=== PATIENT | female | born 1960 | race Caucasian/White ===

== ENCOUNTER → 2016-03-30 | Outpatient (CLI) | payer OTHER ==
[~2016-03-30] MED LIST: /LOR25TA PO; ACET50TA PO; CITA10SO PO; CITA20TA4 PO; COLA50CA3 PO; CYCL10TA PO; DOCU10ELUD FT; EXCETAB PO; HYDR-3716 FT; HYDR-3716 PO; LYRI75CA PO; MORP15TA2 PO; MORP15TA39 PO; PRAV40TA2 PO; VALI10TA PO; [UNRECOGNIZED DRUG - CODE] IV
--- NOTE | 2016-04-02 01:21 | ECWPNPC ---
PATIENT NAME: FARIDA MOHAN : 1960 GENDER: FEMALE VISIT DATE: 03/30/2016 DISCHARGE DATE: 03/30/16 1704 VISIT LOCKED DATE TIME: PHYSICIAN: SILVANA BATRES PHYSICIAN PAGER NO: [phone] RESOURCE: SILVANA BATRES REASON FOR APPOINTMENT 1. W/C BACK PAIN HISTORY OF PRESENT ILLNESS HISTORY OF PRESENT ILLNESS: PAIN THE PATIENT DESCRIBES THE PAIN... 55 YEAR OLD FEMALE PATIENT WITH HISTORY OF CHRONIC BACK PAIN. PATIENT DESCRIBES THE PAIN ACHING, BURNING, SHARP, SHOOTING, AND HAVING IT ALL THE TIME WITH A PAIN SCORE OF 6/10. 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 MRS. MOHAN REPORTS HAVING A BACK SURGERY IN 2013 BUT REPORTS NOT HAVING ANY RELIEF FROM THE SURGERY. CURRENTLY THE PATIENT IS USING HYDROCODONE TO AID IN PAIN RELIEF. PATIENT STATES SHE DOES NOT WANT TO MOVE FORWARD WITH ANY INTERVENTIONS AT THIS TIME. PATIENT DENIES UNEXPLAINABLE WEIGHT LOSS, FEVER, CHILLS, NEW CHANGES ON HER URINARY OR BOWEL CONTROL. FALL RISK SCREENING: SCREENING :NO FALLS IN THE PAST YEAR CURRENT MEDICATIONS TAKING ACETAMINOPHEN 500 MG CAPSULE 1 CAPSULE NEEDED ORALLY EVERY 6 HRS TAKING MULTI COMPLETE CAPSULE 1 TAB ORALLY DAILY TAKING MELOXICAM 7.5 MG TABLET 1 TABLET ORALLY BID TAKING CITALOPRAM HYDROBROMIDE 40 MG TABLET 1 TAB ORALLY ONCE A DAY TAKING PRAVASTATIN SODIUM 40 MG TABLET 1 TABLET ORALLY ONCE A DAY TAKING HYDROCODONE-ACETAMINOPHEN 10-325 MG TABLET 1 TABLET NEEDED ORALLY EVERY 6 HRS PRN MDD4 TAKING HYSINGLA ER 20 MG TABLET ER 24 HOUR ABUSE-DETERRENT 1 TABLET ORALLY BID MDD2 TAKING CYCLOBENZAPRINE HCL 10 MG TABLET 1 TABLET ORALLY BID MEDICATION LIST REVIEWED AND RECONCILED WITH THE PATIENT PAST MEDICAL HISTORY DEPRESSION 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 SOCIAL HISTORY GENERAL: TOBACCO USE ARE YOU A:NONSMOKER LEARNING BARRIERS / SPECIAL NEEDS ORIENTED TO PLAN OF CARE: PATIENT, PAIN MANAGEMENT PATIENT, ORIENTED TO PLAN OF CARE: PATIENT, PAIN MANAGEMENT PATIENT. NEW PATIENT PAIN DIARY TODAY'S VISITNOTES FROM 0-10, WHAT LEVEL IS YOUR PAIN TODAY?0 PAIN CLINIC PFS, CLERGY, PUBLIC HEALTH REFERRALS PFS REFERRAL NEEDED?NO CLERGY REFERRAL NEEDED?NO PUBLIC HEALTH REFERRAL NEEDED?NO WAS THE PROVIDER NOTIFIED OF ANY PERTINENT INFO?NO PFS REFERRAL NEEDED?NO CLERGY REFERRAL NEEDED?NO PUBLIC HEALTH REFERRAL NEEDED?NO WAS THE PROVIDER NOTIFIED OF ANY PERTINENT INFO?NO HOSPITALIZATION/MAJOR DIAGNOSTIC PROCEDURE NO HOSPITALIZATION HISTORY. REVIEW OF SYSTEMS CONSTITUTIONAL: ANY CHANGE IN YOUR MEDICAL CONDITION? YES,MIGRAIN..SINCE MONDAY . CHILLS NO . FEVER NO . INFECTION: DO YOU HAVE NEW INFECTIONS? NO . DO YOU HAVE HISTORY OF MRSA? NO . MUSCULOSKELETAL: ANY NEW PATTERNS OF PAIN OR NUMBNESS? NO . GASTROENTEROLOGY: ANY NEW CHANGE IN BOWEL CONTROL? NO . GENITOURINARY: ANY NEW CHANGE IN BLADDER CONTROL? NO . IS THERE A CHANCE YOU COULD BE ? NO . HEMATOLOGY/LYMPH: DO YOU TAKE ANY BLOOD THINNERS? (FOR EXAMPLE- COUMADIN, PLAVIX, AGGRENOX, PLATEL, PRADAXA, OR XARELTO) NO . WHEN WAS YOUR LAST DOSE? DATE: TIME: . NEUROLOGY: HAVE YOU FALLEN IN THE PAST 6 MONTHS? NO . ANY NEW EXTREMITY NUMBNESS OR WEAKNESS? NO . CARDIOLOGY: DO YOU HAVE A PACEMAKER OR DEFIBRILLATOR? NO . RESPIRATORY: HAVE YOU BEEN SICK IN THE PAST WEEK? NO . FEVER NO . FLU LIKE SYMPTOMS? NO . COUGH NO . INTEGUMENTARY: DO YOU HAVE ANY RASHES OR OPEN SORES? NO . ALLERGIC/IMMUNO: ARE YOU ALLERGIC TO SHELLFISH OR IV DYE? NO . ANY NEW ALLERGIES? NO . PSYCHIATRIC: DO YOU HAVE THOUGHTS OF HURTING YOURSELF OR SOMEONE ELSE? NO . ARE YOU ABUSED, NEGLECTED, OR IN AN UNSAFE ENVIRONMENT? NO . ENDOCRINOLOGY: ARE YOU DIABETIC? NO . OTHER: DO YOU NEED ANY PRESCRIPTIONS? NO . IF YES, PLEASE LIST: ____ . ANY NEW PROBLEMS WITH YOUR MEDICATIONS? NO . WHEN DID YOU LAST EAT? ____ . WHEN DID YOU LAST DRINK? ____ . WHAT DID YOU LAST DRINK? ____ . NAME OF PERSON DRIVING YOU HOME? ____ . DO YOU HAVE ANY OTHER QUESTIONS OR CONCERNS NO . REVIEWED BY: PROVIDER: SILVANA BATRES MD . VITAL SIGNS WT 156 LBS, HT 5'4 1/2", BMI 26.36 INDEX, BP 115/77 MM HG, HR 106 /MIN, RR 16 /MIN, TEMP 98.9 F, OXYGEN SAT % 96%, NA INITIALS SC 15:10. EXAMINATION : PATIENT IS ALERT O X 3 AND COOPERATIVE. PATIENT AMBULATES WITH A CANE, HAS A ANTALGIC GAIT WITH A LEFT LIMP. BANDS OF TISSUES, RESTRICTION OF MOVEMENT, AND PRESENCE OF TRIGGER POINTS AT THE LOWER BACK AREA. LEFT LEG IS WEAKER THEN THE RIGHT AT EXTENSION AND FLEXION. TENDERNESS IN THE LEFT LUMBAR PARASPINAL MUSCLE GROUP. SURGICAL SCAR SIX INCHES IN LENGTH IN THE BACK AREA. ASSESSMENTS CHRONIC BILATERAL LOW BACK PAIN WITH LEFT-SIDED SCIATICA - M54.42 (PRIMARY) MYALGIA - M79.1 TREATMENT CHRONIC BILATERAL LOW BACK PAIN WITH LEFT-SIDED SCIATICA REFILL HYDROCODONE-ACETAMINOPHEN TABLET, 10-325 MG, 1 TABLET NEEDED, ORALLY, EVERY 6 HRS PRN MDD4, 30 DAY(S), 120, REFILLS 0 REFILL HYSINGLA ER TABLET ER 24 HOUR ABUSE-DETERRENT, 20 MG, 1 TABLET, ORALLY, BID MDD2, 30 DAY(S), 60, REFILLS 0 NOTES: WE DISCUSSED SEVERAL ISSUES WITH MRS. MOHAN'S PAIN MANAGEMENT CASE. AT THIS TIME THE PATIENT WILL CONTINUE WITH THE SAME MEDICATION REGIME BEFORE. PATIENT DENIES ABUSE OF ANY MEDICATION, DENIES USE OF ILLEGAL SUBSTANCES, AND STATES SHE ONLY USES THE MEDICATION FOR PAIN MANAGEMENT. URINE TOXICOLOGY REPORT DONE ON 01/2016 SHOWS CONSISTENT RESULTS WITH PATIENT'S MEDICATION LIST. AT THIS TIME WE WILL NOT MOVE FORWARD WITH ANY INJECTIONS THE PATIENT REPORTS NOT WANTING TO. PATIENT WILL RETURN TO THE CLINIC IN 4 WEEKS TO FURTHER DISCUSS HER CASE. INSTRUCTIONS WERE GIVEN, QUESTIONS WERE ANSWERED, PATIENT REPORTS UNDERSTANDING AND AGREES WITH THE PLAN. I, V[place] CM, DOCUMENTED THE ABOVE INFORMATION ACTING A SCRIBE FOR DR. BATRES. I HAVE REVIEWED THE ABOVE DOCUMENT, WRITTEN BY [place] SOTO AND I VERIFY THAT IT IS ACCURATE. PROCEDURES PN WORKMANS' COMP OPINION IN YOUR OPINION, WAS THE INCIDENT THAT THE PATIENT DESCRIBED THE COMPETENT MEDICAL CAUSE OF THIS INJURY/ILLNESS? YES ARE THE PATIENT'S COMPLAINTS CONSISTENT WITH HIS/HER HISTORY OF THE INJURY/ILLNESS? YES IS THE PATIENT'S HISTORY OF THE INJURY/ILLNESS CONSISTENT WITH YOUR OBJECTIVE FINDING? YES WHAT IS THE PERCENTAGE OF TEMPORARY IMPAIRMENT? MODERATE TO MARKED = 66.7% IS THE PATIENT WORKING? NO DOCTOR ON SITE: SILVANA GOLDMAN MD PROCEDURE CODES FA211 ESTABILISHED PATIENT [facility] FACILITY CHARGE G8427 DOC MEDS VERIFIED W/PT OR RE G8730 PAIN ASSESS POS TOOL F/U PLAN DOC FOLLOW UP 4 WEEKS ELECTRONICALLY SIGNED BY SILVANA BATRES MD ON 04/01/2016 AT 06:13 PM EST DISCLAIMER : THIS IS A VISIT SUMMARY EXTRACTED FROM THE [employer] CHART. IT IS NOT A COPY OF THE [employer] PROGRESS NOTE. YULIANA
== END ==
LOC: M PAIN 15:00
PROVIDERS: ATTEND Anesthesiology
DX: M54.42 Lumbago with sciatica, left side (principal); M79.1 Myalgia; Z79.891 Long term (current) use of opiate analgesic; Z79.899 Other long term (current) drug therapy; Z88.0 Allergy status to penicillin; Z88.8 Allergy status to other drugs, medicaments and biological substances; Z91.040 Latex allergy status

== ENCOUNTER → 2016-04-19 | Outpatient (REF) | payer OTHER ==
[2016-04-19 17:30] LABS: ALBUMIN 3.8 GM/DL (3.2-5.2); ALBUMIN/GLOBULIN RATIO 1.23 (1.00-1.93); ALKALINE PHOSPHATASE 106 U/L (45-117); ALT/SGPT 74 U/L (12-78); ANION GAP 9 MEQ/L (8-16); AST/SGOT 27 U/L (15-37); BILIRUBIN,TOTAL 0.6 MG/DL (0.2-1.0); BLOOD UREA NITROGEN 14 MG/DL (7-18); CARBON DIOXIDE LEVEL 28 MEQ/L (21-32); CHLORIDE LEVEL 107 MEQ/L (98-107); CHOLESTEROL LEVEL 187 MG/DL (<200); CREATININE FOR GFR 0.79 MG/DL (0.55-1.02); GLOMERULAR FILTRATION RATE > 60.0 (>51); GLUCOSE, FASTING 110 MG/DL (70-105); SODIUM LEVEL 144 MEQ/L (136-145); TOTAL PROTEIN 6.9 GM/DL (6.4-8.2); TRIGLYCERIDES LEVEL 63 MG/DL (<150)
== END ==
LOC: M SFHCCLAY 10:06
PROVIDERS: ATTEND Family Medicine
DX: E78.2 Mixed hyperlipidemia (principal)

== ENCOUNTER → 2016-04-28 | Outpatient (CLI) | payer OTHER ==
--- NOTE | 2016-05-07 01:26 | ECWPNPC ---
PATIENT NAME: FARIDA MOHAN : 1960 GENDER: FEMALE VISIT DATE: 04/28/2016 DISCHARGE DATE: 04/28/16 1506 VISIT LOCKED DATE TIME: PHYSICIAN: SILVANA BATRES PHYSICIAN PAGER NO: [phone] RESOURCE: SILVANA BATRES REASON FOR APPOINTMENT 1. W/C BACK HISTORY OF PRESENT ILLNESS HISTORY OF PRESENT ILLNESS: PAIN THE PATIENT DESCRIBES THE PAIN... 55 YEAR OLD FEMALE PATIENT WITH HISTORY OF CHRONIC BACK PAIN. PATIENT DESCRIBES THE PAIN ACHING, BURNING, AND HAVING IT ALL THE TIME, STABBING AT TIMES AND SHOOTING AT TIMES WITH A PAIN SCORE OF 7/10 ON TODAY'S VISIT. 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 PATIENT STATES THAT SHE IS SCHEDULE TO HAVE AN ACUPUNCTURE NEXT WEEK AND SHE RECENTLY SAW AN ARIANA. PATIENT REPORTS THAT SINCE SHE SAW THE ARIANA SHE NOW HAS AN INCREASED PAIN IN HER LEG. PATIENT REPORTS THAT SHE HAS HAD PT IN THE PAST AND IT DID NOT WORK FOR HER. PATIENT DENIES UNEXPLAINABLE WEIGHT LOSS, FEVER, CHILLS, NEW CHANGES ON HER URINARY OR BOWEL CONTROL. FALL RISK SCREENING: SCREENING :NO FALLS IN THE PAST YEAR CURRENT MEDICATIONS TAKING ACETAMINOPHEN 500 MG CAPSULE 1 CAPSULE NEEDED ORALLY EVERY 6 HRS TAKING MULTI COMPLETE CAPSULE 1 TAB ORALLY DAILY TAKING MELOXICAM 7.5 MG TABLET 1 TABLET ORALLY BID TAKING CITALOPRAM HYDROBROMIDE 40 MG TABLET 1 TAB ORALLY ONCE A DAY TAKING PRAVASTATIN SODIUM 40 MG TABLET 1 TABLET ORALLY ONCE A DAY TAKING HYDROCODONE-ACETAMINOPHEN 10-325 MG TABLET 1 TABLET NEEDED ORALLY EVERY 6 HRS PRN MDD4 TAKING HYSINGLA ER 20 MG TABLET ER 24 HOUR ABUSE-DETERRENT 1 TABLET ORALLY BID MDD2 TAKING CYCLOBENZAPRINE HCL 10 MG TABLET 1 TABLET ORALLY BID MEDICATION LIST REVIEWED AND RECONCILED WITH THE PATIENT PAST MEDICAL HISTORY DEPRESSION 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 SOCIAL HISTORY GENERAL: TOBACCO USE ARE YOU A:NONSMOKER LEARNING BARRIERS / SPECIAL NEEDS ORIENTED TO PLAN OF CARE: PATIENT, PAIN MANAGEMENT PATIENT, ORIENTED TO PLAN OF CARE: PATIENT, PAIN MANAGEMENT PATIENT. NEW PATIENT PAIN DIARY TODAY'S VISITNOTES FROM 0-10, WHAT LEVEL IS YOUR PAIN TODAY?0 PAIN CLINIC PFS, CLERGY, PUBLIC HEALTH REFERRALS PFS REFERRAL NEEDED?NO CLERGY REFERRAL NEEDED?NO PUBLIC HEALTH REFERRAL NEEDED?NO WAS THE PROVIDER NOTIFIED OF ANY PERTINENT INFO?NO PFS REFERRAL NEEDED?NO CLERGY REFERRAL NEEDED?NO PUBLIC HEALTH REFERRAL NEEDED?NO WAS THE PROVIDER NOTIFIED OF ANY PERTINENT INFO?NO HOSPITALIZATION/MAJOR DIAGNOSTIC PROCEDURE NO HOSPITALIZATION HISTORY. REVIEW OF SYSTEMS CONSTITUTIONAL: ANY CHANGE IN YOUR MEDICAL CONDITION? NO . CHILLS NO . FEVER YES 1 WEEK AGO WITH URI . INFECTION: DO YOU HAVE NEW INFECTIONS? NO . DO YOU HAVE HISTORY OF MRSA? NO . MUSCULOSKELETAL: ANY NEW PATTERNS OF PAIN OR NUMBNESS? NO . GASTROENTEROLOGY: ANY NEW CHANGE IN BOWEL CONTROL? NO . GENITOURINARY: ANY NEW CHANGE IN BLADDER CONTROL? NO . IS THERE A CHANCE YOU COULD BE ? NO . HEMATOLOGY/LYMPH: DO YOU TAKE ANY BLOOD THINNERS? (FOR EXAMPLE- COUMADIN, PLAVIX, AGGRENOX, PLATEL, PRADAXA, OR XARELTO) NO . WHEN WAS YOUR LAST DOSE? DATE: TIME: . NEUROLOGY: HAVE YOU FALLEN IN THE PAST 6 MONTHS? NO . ANY NEW EXTREMITY NUMBNESS OR WEAKNESS? NO . CARDIOLOGY: DO YOU HAVE A PACEMAKER OR DEFIBRILLATOR? NO . RESPIRATORY: HAVE YOU BEEN SICK IN THE PAST WEEK? YES-URI PAST WEEK . FEVER YES ! WEEK AGO WITH URI . FLU LIKE SYMPTOMS? NO . COUGH YES, PRODUCTIVE, CLEAR SPUTUM . INTEGUMENTARY: DO YOU HAVE ANY RASHES OR OPEN SORES? NO . ALLERGIC/IMMUNO: ARE YOU ALLERGIC TO SHELLFISH OR IV DYE? NO . ANY NEW ALLERGIES? NO . PSYCHIATRIC: DO YOU HAVE THOUGHTS OF HURTING YOURSELF OR SOMEONE ELSE? NO . ARE YOU ABUSED, NEGLECTED, OR IN AN UNSAFE ENVIRONMENT? NO . ENDOCRINOLOGY: ARE YOU DIABETIC? NO . OTHER: DO YOU NEED ANY PRESCRIPTIONS? YES HYDROCODONE, HYSINGLA . IF YES, PLEASE LIST: ____ . ANY NEW PROBLEMS WITH YOUR MEDICATIONS? NO . WHEN DID YOU LAST EAT? ____ . WHEN DID YOU LAST DRINK? ____ . WHAT DID YOU LAST DRINK? ____ . NAME OF PERSON DRIVING YOU HOME? ____ . DO YOU HAVE ANY OTHER QUESTIONS OR CONCERNS NO . REVIEWED BY: PROVIDER: SILVANA BATRES MD . VITAL SIGNS WT 172.4 LBS, HT 5'4 1/2", BMI 29.13 INDEX, BP 142/87 MM HG, HR 73 /MIN, RR 16 /MIN, TEMP 98.0 F, OXYGEN SAT % 99, NA INITIALS TL 1343, REVIEWED BY: MLFPT WEIGHED ON SCALE- TL. EXAMINATION : PATIENT IS ALERT O X 3 AND COOPERATIVE. PATIENT AMBULATES WITH A CANE TODAY WITH DIFFICULTIES. PAIN IN THE LOW BACK PARASPINAL MUSCLE GROUP. PATIENT'S LEFT LEG IS WEAKER AT EXTENSION AND FLEXION. PATIENT IS ABLE TO FLEX HER BACK AT 15 DEGREES AND EXTEND HER BACK AT 5 DEGREES. ASSESSMENTS LUMBAGO WITH SCIATICA, LEFT SIDE - M54.42 (PRIMARY) POSTLAMINECTOMY SYNDROME, NOT ELSEWHERE CLASSIFIED - M96.1 TREATMENT LUMBAGO WITH SCIATICA, LEFT SIDE NOTES: WE DISCUSSED SEVERAL ISSUES WITH MS. MOHAN'S PAIN MANAGEMENT CASE. PATIENT IS CURRENTLY USING HYDROCODONE-ACETAMINOPHEN AND HYSINGLA FOR SOMATIC PAIN AND WILL RECEIVE A REFILL OF THOSE MEDICATION TODAY. PATIENT IS USING CYCLOBENZAPRINE FOR CRAMPS AND SPASTICITY AND WILL RECEIVE A REFILL TODAY. PATIENT WILL START ON GABAPENTIN TODAY FOR NEUROPATHIC PAIN AND IS TO TAKE IT AT NIGHT. PATIENT BROUGHT HER MEDICATION BOTTLES IN TODAY. I DISCUSSED WITH THE PATIENT ABOUT THE DIFFERENT INTERVENTIONS WE OFFER HERE AND THE PATIENT EXPRESSED SOME CONCERNS ABOUT THE INJECTION AND WOULD LIKE TO HOLD OFF AT THIS TIME. UTOX DONE ON 02/17/2016 SHOWS CONSISTENT RESULTS. PATIENT TO FOLLOW UP WITH ME IN 3 WEEKS. INSTRUCTIONS WERE GIVEN, QUESTIONS WERE ANSWERED, PATIENT REPORTS UNDERSTANDING AND AGREES WITH THE PLAN. I, JENNY JOHNSTON, DOCUMENTED THE ABOVE INFORMATION ACTING A SCRIBE FOR DR. BATRES. I HAVE REVIEWED THE ABOVE DOCUMENT, WRITTEN BY JENNY HERZOGIBIrma AND I VERIFY THAT IT IS ACCURATE. OTHERS REFILL HYDROCODONE-ACETAMINOPHEN TABLET, 10-325 MG, 1 TABLET NEEDED, ORALLY, EVERY 6 HRS PRN MDD4, 30 DAY(S), 120, REFILLS 0 REFILL HYSINGLA ER TABLET ER 24 HOUR ABUSE-DETERRENT, 20 MG, 1 TABLET, ORALLY, BID MDD2, 30 DAY(S), 60, REFILLS 0 REFILL CYCLOBENZAPRINE HCL TABLET, 10 MG, 1 TABLET, ORALLY, BID, 30 DAY(S), 60 TABLET, REFILLS 3 START GABAPENTIN CAPSULE, 100 MG, DIRECTED, ORALLY FOR PAIN, BEFORE BEDTIME, 30 DAY(S), 30, REFILLS 1 PROCEDURES PN WORKMANS' COMP OPINION IN YOUR OPINION, WAS THE INCIDENT THAT THE PATIENT DESCRIBED THE COMPETENT MEDICAL CAUSE OF THIS INJURY/ILLNESS? YES ARE THE PATIENT'S COMPLAINTS CONSISTENT WITH HIS/HER HISTORY OF THE INJURY/ILLNESS? YES IS THE PATIENT'S HISTORY OF THE INJURY/ILLNESS CONSISTENT WITH YOUR OBJECTIVE FINDING? YES WHAT IS THE PERCENTAGE OF TEMPORARY IMPAIRMENT? MODERATE TO MARKED = 66.7% IS THE PATIENT WORKING? NO DOCTOR ON SITE: SILVANA GOLDMAN MD PROCEDURE CODES FA211 ESTABILISHED PATIENT [facility] FACILITY CHARGE G8730 PAIN ASSESS POS TOOL F/U PLAN DOC G8427 DOC MEDS VERIFIED W/PT OR RE DISPOSITION & COMMUNICATION FOLLOW UP 3 WEEKS ELECTRONICALLY SIGNED BY SILVANA BATRES MD ON 05/03/2016 AT 08:27 PM EST DISCLAIMER : THIS IS A VISIT SUMMARY EXTRACTED FROM THE [employer] CHART. IT IS NOT A COPY OF THE [employer] PROGRESS NOTE. YULIANA
== END ==
LOC: M PAIN 13:20
PROVIDERS: ATTEND Anesthesiology
DX: Z09 Encounter for follow-up examination after completed treatment for conditions other than malignant neoplasm (principal); G89.29 Other chronic pain; M54.42 Lumbago with sciatica, left side; M96.1 Postlaminectomy syndrome, not elsewhere classified; F32.9 Major depressive disorder, single episode, unspecified; Z91.040 Latex allergy status; Z88.0 Allergy status to penicillin; Z88.8 Allergy status to other drugs, medicaments and biological substances; Z79.1 Long term (current) use of non-steroidal anti-inflammatories (NSAID); Z79.891 Long term (current) use of opiate analgesic; Z79.899 Other long term (current) drug therapy

== ENCOUNTER → 2016-05-24 | Outpatient (CLI) | payer OTHER ==
--- NOTE | 2016-06-04 23:38 | ECWPNPC ---
PATIENT NAME: FARIDA MOHAN : 1960 GENDER: FEMALE VISIT DATE: 05/24/2016 DISCHARGE DATE: 05/24/16 1705 VISIT LOCKED DATE TIME: PHYSICIAN: SILVANA BATRES PHYSICIAN PAGER NO: [phone] RESOURCE: SILVANA BATRES REASON FOR APPOINTMENT 1. W/C BACK AND LEFT LEG HISTORY OF PRESENT ILLNESS HISTORY OF PRESENT ILLNESS: PAIN THE PATIENT DESCRIBES THE PAIN... 56 YEAR OLD FEMALE WITH HISTORY OF CHRONIC BACK PAIN. PATIENT DESCRIBES THE PAIN ACHING, STABBING AT TIMES, SORE, AND HAVING IT ALL THE TIME WITH A PAIN SCORE OF 7/10 ON TODAY'S VISIT. 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 PATIENT REPORTS THAT SHE HAS RADIATING PAIN FROM HER BACK GOING DOWN HER LEFT LEG. PATIENT REPORTS THAT SHE TIRED THE GABAPENTIN THAT WAS PRESCRIBED TO HER ON THE LAST VISIT, AND STATES THAT IT MAKES HER DIZZY AND CAUSES NAUSEA. PATIENT REPORTS THAT NOT TAKING CYCLOBENZAPRINE CAUSES MUSCLE SPASMS. PATIENT DENIES UNEXPLAINABLE WEIGHT LOSS, FEVER, CHILLS, NEW CHANGES ON HER URINARY OR BOWEL CONTROL. FALL RISK SCREENING: SCREENING :NO FALLS IN THE PAST YEAR CURRENT MEDICATIONS TAKING HYDROCODONE-ACETAMINOPHEN 10-325 MG TABLET 1 TABLET NEEDED ORALLY EVERY 6 HRS PRN MDD4 TAKING HYSINGLA ER 20 MG TABLET ER 24 HOUR ABUSE-DETERRENT 1 TABLET ORALLY BID MDD2 TAKING CYCLOBENZAPRINE HCL 10 MG TABLET 1 TABLET ORALLY BID TAKING MELOXICAM 7.5 MG TABLET 1 TABLET ORALLY BID TAKING ACETAMINOPHEN 500 MG CAPSULE 1 CAPSULE NEEDED ORALLY EVERY 6 HRS TAKING MULTI COMPLETE CAPSULE 1 TAB ORALLY DAILY TAKING PRAVASTATIN SODIUM 40 MG TABLET 1 TABLET ORALLY ONCE A DAY TAKING CITALOPRAM HYDROBROMIDE 40 MG TABLET 1 TAB ORALLY ONCE A DAY TAKING GABAPENTIN 100 MG CAPSULE DIRECTED ORALLY FOR PAIN BEFORE BEDTIME MEDICATION LIST REVIEWED AND RECONCILED WITH THE PATIENT PAST MEDICAL HISTORY DEPRESSION 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 SOCIAL HISTORY GENERAL: TOBACCO USE ARE YOU A:NONSMOKER LEARNING BARRIERS / SPECIAL NEEDS ORIENTED TO PLAN OF CARE: PATIENT, PAIN MANAGEMENT PATIENT, ORIENTED TO PLAN OF CARE: PATIENT, PAIN MANAGEMENT PATIENT. NEW PATIENT PAIN DIARY TODAY'S VISITNOTES FROM 0-10, WHAT LEVEL IS YOUR PAIN TODAY?0 PAIN CLINIC PFS, CLERGY, PUBLIC HEALTH REFERRALS PFS REFERRAL NEEDED?NO CLERGY REFERRAL NEEDED?NO PUBLIC HEALTH REFERRAL NEEDED?NO WAS THE PROVIDER NOTIFIED OF ANY PERTINENT INFO?NO PFS REFERRAL NEEDED?NO CLERGY REFERRAL NEEDED?NO PUBLIC HEALTH REFERRAL NEEDED?NO WAS THE PROVIDER NOTIFIED OF ANY PERTINENT INFO?NO HOSPITALIZATION/MAJOR DIAGNOSTIC PROCEDURE NO HOSPITALIZATION HISTORY. REVIEW OF SYSTEMS CONSTITUTIONAL: ANY CHANGE IN YOUR MEDICAL CONDITION? NO . CHILLS NO . FEVER NO . INFECTION: DO YOU HAVE NEW INFECTIONS? NO . DO YOU HAVE HISTORY OF MRSA? NO . MUSCULOSKELETAL: ANY NEW PATTERNS OF PAIN OR NUMBNESS? NO . GASTROENTEROLOGY: ANY NEW CHANGE IN BOWEL CONTROL? NO . GENITOURINARY: ANY NEW CHANGE IN BLADDER CONTROL? NO . IS THERE A CHANCE YOU COULD BE ? NO . HEMATOLOGY/LYMPH: DO YOU TAKE ANY BLOOD THINNERS? (FOR EXAMPLE- COUMADIN, PLAVIX, AGGRENOX, PLATEL, PRADAXA, OR XARELTO) NO . WHEN WAS YOUR LAST DOSE? DATE: TIME: . NEUROLOGY: HAVE YOU FALLEN IN THE PAST 6 MONTHS? NO . ANY NEW EXTREMITY NUMBNESS OR WEAKNESS? NO . CARDIOLOGY: DO YOU HAVE A PACEMAKER OR DEFIBRILLATOR? NO . RESPIRATORY: HAVE YOU BEEN SICK IN THE PAST WEEK? NO . FEVER NO . FLU LIKE SYMPTOMS? NO . COUGH NO . INTEGUMENTARY: DO YOU HAVE ANY RASHES OR OPEN SORES? NO . ALLERGIC/IMMUNO: ARE YOU ALLERGIC TO SHELLFISH OR IV DYE? NO . ANY NEW ALLERGIES? NO . PSYCHIATRIC: DO YOU HAVE THOUGHTS OF HURTING YOURSELF OR SOMEONE ELSE? NO . ARE YOU ABUSED, NEGLECTED, OR IN AN UNSAFE ENVIRONMENT? NO . ENDOCRINOLOGY: ARE YOU DIABETIC? NO . OTHER: DO YOU NEED ANY PRESCRIPTIONS? HYSINGLA, HYDROCODONE . IF YES, PLEASE LIST: ____ . ANY NEW PROBLEMS WITH YOUR MEDICATIONS? NO . WHEN DID YOU LAST EAT? ____ . WHEN DID YOU LAST DRINK? ____ . WHAT DID YOU LAST DRINK? ____ . NAME OF PERSON DRIVING YOU HOME? ____ . DO YOU HAVE ANY OTHER QUESTIONS OR CONCERNS YES PT REPORTS THAT SHE RESTARTED GABAPENTIN PER DR. BATRES'S SUGGESTION, BUT FEELS IT MAKES IT DIFFICULT FOR HER TO FOCUS, AND SHE WOULD LIKE TO DISCUSS THIS.&NBSP;. REVIEWED BY: PROVIDER: SILVANA BATRES MD . VITAL SIGNS WT 160 LBS, HT 5'4 1/2", BMI 27.04 INDEX, BP 140/85 MM HG, HR 82 /MIN, RR 16 /MIN, TEMP 97.8 F, OXYGEN SAT % 98, SAFE IN ENV? (Y/N) YES, NA INITIALS TL 1516, REVIEWED BY: CONNOR. EXAMINATION : PATIENT IS ALERT O X 3 AND COOPERATIVE. PATIENT AMBULATES WITH AN ANTALGIC GAIT AND DIFFICULTIES AND WITH A CANE ON THE LEFT HAND. PATIENT HAS TENDERNESS IN THE LOW BACK PARASPINAL MUSCLE GROUP WITH RESTRICTION OF MOVEMENT, BANDS OF TISSUES, AND PRESENCE OF TRIGGER POINTS. PATIENT LEFT LEG IS WEAKER AT FLEXION AND EXTENSION COMPARED TO THE RIGHT LEG. ASSESSMENTS LUMBAGO WITH SCIATICA, LEFT SIDE - M54.42 (PRIMARY) POSTLAMINECTOMY SYNDROME, NOT ELSEWHERE CLASSIFIED - M96.1 TREATMENT LUMBAGO WITH SCIATICA, LEFT SIDE NOTES: WE DISCUSSED SEVERAL ISSUES WITH MS. MOHAN'S PAIN MANAGEMENT CASE. PATIENT IS A GOOD CANDIDATE FOR A LUMBAR EPIDURAL, PATIENT STATES AT THIS TIME SHE DOES NOT WANT TO PROCEED WITH INTERVENTIONS. PATIENT WILL RECEIVE A REFILL OF MELOXICAM, HYDROCODONE-ACETAMINOPHEN, HYSINGLA, AND CYCLOBENZAPRINE. PATIENT DENIES USING ILLEGAL SUBSTANCES AND STATES THAT SHE IS USING THE MEDICATIONS INTENDED. PATIENT BROUGHT HER MEDICATION BOTTLES TO TODAY'S VISIT. PATIENT TO FOLLOW UP WITH ME IN 5 WEEKS. , INSTRUCTIONS WERE GIVEN, QUESTIONS WERE ANSWERED, PATIENT REPORTS UNDERSTANDING AND AGREES WITH THE PLAN. I, JENNY JOHNSTON, DOCUMENTED THE ABOVE INFORMATION ACTING A SCRIBE FOR DR. BATRES. I HAVE REVIEWED THE ABOVE DOCUMENT, WRITTEN BY JENNY SOTO AND I VERIFY THAT IT IS ACCURATE. PROCEDURES PN WORKMANS' COMP OPINION IN YOUR OPINION, WAS THE INCIDENT THAT THE PATIENT DESCRIBED THE COMPETENT MEDICAL CAUSE OF THIS INJURY/ILLNESS? YES ARE THE PATIENT'S COMPLAINTS CONSISTENT WITH HIS/HER HISTORY OF THE INJURY/ILLNESS? YES IS THE PATIENT'S HISTORY OF THE INJURY/ILLNESS CONSISTENT WITH YOUR OBJECTIVE FINDING? YES WHAT IS THE PERCENTAGE OF TEMPORARY IMPAIRMENT? MODERATE TO MARKED = 66.7% IS THE PATIENT WORKING? NO DOCTOR ON SITE: SILVANA GOLDMAN MD PROCEDURE CODES FA211 ESTABILISHED PATIENT [facility] FACILITY CHARGE G8730 PAIN ASSESS POS TOOL F/U PLAN DOC G8427 DOC MEDS VERIFIED W/PT OR RE DISPOSITION & COMMUNICATION FOLLOW UP 5 WEEKS ELECTRONICALLY SIGNED BY SILVANA BATRES MD ON 06/04/2016 AT 08:55 PM EDT DISCLAIMER : THIS IS A VISIT SUMMARY EXTRACTED FROM THE [employer] CHART. IT IS NOT A COPY OF THE [employer] PROGRESS NOTE. YULIANA
== END ==
LOC: M PAIN 15:00
PROVIDERS: ATTEND Anesthesiology
DX: Z09 Encounter for follow-up examination after completed treatment for conditions other than malignant neoplasm (principal); G89.29 Other chronic pain; M54.42 Lumbago with sciatica, left side; M96.1 Postlaminectomy syndrome, not elsewhere classified; E32.9 Disease of thymus, unspecified; Z91.040 Latex allergy status; Z88.0 Allergy status to penicillin; Z88.8 Allergy status to other drugs, medicaments and biological substances; Z79.1 Long term (current) use of non-steroidal anti-inflammatories (NSAID); Z79.899 Other long term (current) drug therapy

== ENCOUNTER → 2016-06-28 | Outpatient (CLI) | payer OTHER ==
--- NOTE | 2016-07-11 00:30 | ECWPNPC ---
PATIENT NAME: FARIDA MOHAN : 1960 GENDER: FEMALE VISIT DATE: 06/28/2016 DISCHARGE DATE: 06/28/16 1653 VISIT LOCKED DATE TIME: PHYSICIAN: SILVANA BATRES PHYSICIAN PAGER NO: [phone] RESOURCE: SILVANA BATRES REASON FOR APPOINTMENT 1. W/C BACK HISTORY OF PRESENT ILLNESS HISTORY OF PRESENT ILLNESS: PAIN THE PATIENT DESCRIBES THE PAIN... 56 YEAR OLD FEMALE PATIENT WITH HISTORY OF CHRONIC BACK PAIN. PATIENT DESCRIBES THE PAIN ACHING, SHARP, TENDER, AND SORE WITH A PAIN SCORE OF 7/10 ON TODAY'S VISIT. 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 PATIENT REPORTS THAT SHE HAS HAD ONE BACK SURGERY SINCE INJURING HER BACK. PATIENT HAS TRIED PHYSICAL THERAPY IN THE PAST WITHOUT ANY SUCCESS IN PAIN RELIEF. PATIENT REPORTS THAT SHE HAS RADIATING PAIN GOING DOWN HER LEFT LEG FROM HER BACK. PATIENT STATES THAT SOMETIME SHE HAS DIFFICULTIES SLEEPING AT NIGHT. PATIENT REPORTS THAT TAKING CYCLOBENZAPRINE NEEDED PREVENTS MUSCLE SPASMS. PATIENT DENIES UNEXPLAINABLE WEIGHT LOSS, FEVER, CHILLS, NEW CHANGES ON HER URINARY OR BOWEL CONTROL. FALL RISK SCREENING: SCREENING :NO FALLS IN THE PAST YEAR CURRENT MEDICATIONS TAKING HYDROCODONE-ACETAMINOPHEN 10-325 MG TABLET 1 TABLET NEEDED ORALLY EVERY 6 HRS PRN MDD4 TAKING HYSINGLA ER 20 MG TABLET ER 24 HOUR ABUSE-DETERRENT 1 TABLET ORALLY BID MDD2 TAKING CYCLOBENZAPRINE HCL 10 MG TABLET 1 TABLET ORALLY BID TAKING MELOXICAM 7.5 MG TABLET 1 TABLET ORALLY BID TAKING ACETAMINOPHEN 500 MG CAPSULE 1 CAPSULE NEEDED ORALLY EVERY 6 HRS TAKING MULTI COMPLETE CAPSULE 1 TAB ORALLY DAILY TAKING PRAVASTATIN SODIUM 40 MG TABLET 1 TABLET ORALLY ONCE A DAY TAKING CITALOPRAM HYDROBROMIDE 40 MG TABLET 1 TAB ORALLY ONCE A DAY TAKING IMITREX 6 MG/0.5ML SOLUTION 0.5 ML NEEDED SUBCUTANEOUS TWICE A DAY ONE HOR APART IF NEEDED DIR NOT-TAKING GABAPENTIN 100 MG CAPSULE DIRECTED ORALLY FOR PAIN BEFORE BEDTIME MEDICATION LIST REVIEWED AND RECONCILED WITH THE PATIENT PAST MEDICAL HISTORY DEPRESSION 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 SOCIAL HISTORY GENERAL: PAIN CLINIC PFS, CLERGY, PUBLIC HEALTH REFERRALS CLERGY REFERRAL NEEDED?NO WAS THE PROVIDER NOTIFIED OF ANY PERTINENT INFO?NO PFS REFERRAL NEEDED?NO PUBLIC HEALTH REFERRAL NEEDED?NO PATIENT: ____. HOSPITALIZATION/MAJOR DIAGNOSTIC PROCEDURE NO HOSPITALIZATION HISTORY. REVIEW OF SYSTEMS CONSTITUTIONAL: ANY CHANGE IN YOUR MEDICAL CONDITION? NO . CHILLS NO . FEVER NO . INFECTION: DO YOU HAVE NEW INFECTIONS? NO . DO YOU HAVE HISTORY OF MRSA? NO . MUSCULOSKELETAL: ANY NEW PATTERNS OF PAIN OR NUMBNESS? NO . GASTROENTEROLOGY: ANY NEW CHANGE IN BOWEL CONTROL? NO . GENITOURINARY: ANY NEW CHANGE IN BLADDER CONTROL? NO . IS THERE A CHANCE YOU COULD BE ? NO . HEMATOLOGY/LYMPH: DO YOU TAKE ANY BLOOD THINNERS? (FOR EXAMPLE- COUMADIN, PLAVIX, AGGRENOX, PLATEL, PRADAXA, OR XARELTO) NO . WHEN WAS YOUR LAST DOSE? DATE: TIME: . NEUROLOGY: HAVE YOU FALLEN IN THE PAST 6 MONTHS? NO . ANY NEW EXTREMITY NUMBNESS OR WEAKNESS? NO . CARDIOLOGY: DO YOU HAVE A PACEMAKER OR DEFIBRILLATOR? NO . RESPIRATORY: HAVE YOU BEEN SICK IN THE PAST WEEK? NO . FEVER NO . FLU LIKE SYMPTOMS? NO . COUGH NO . INTEGUMENTARY: DO YOU HAVE ANY RASHES OR OPEN SORES? NO . ALLERGIC/IMMUNO: ARE YOU ALLERGIC TO SHELLFISH OR IV DYE? NO . ANY NEW ALLERGIES? NO . PSYCHIATRIC: DO YOU HAVE THOUGHTS OF HURTING YOURSELF OR SOMEONE ELSE? NO . ARE YOU ABUSED, NEGLECTED, OR IN AN UNSAFE ENVIRONMENT? NO . ENDOCRINOLOGY: ARE YOU DIABETIC? NO . OTHER: DO YOU NEED ANY PRESCRIPTIONS? YES . IF YES, PLEASE LIST: ____HYDROCODONE AND HYSINGLA . ANY NEW PROBLEMS WITH YOUR MEDICATIONS? NO . WHEN DID YOU LAST EAT? ____ . WHEN DID YOU LAST DRINK? ____ . WHAT DID YOU LAST DRINK? ____ . NAME OF PERSON DRIVING YOU HOME? ____ . DO YOU HAVE ANY OTHER QUESTIONS OR CONCERNS NO . REVIEWED BY: PROVIDER: SILVANA BATRES MD . VITAL SIGNS WT 160 LBS, HT 5'4 1/2", BMI 27.04 INDEX, BP 130/86 MM HG, HR 95 /MIN, RR 16 /MIN, TEMP 98.8 F, OXYGEN SAT % 98, NA INITIALS AW 1547, REVIEWED BY: AD. EXAMINATION : PATIENT IS ALERT O X 3 AND COOPERATIVE. PATIENT AMBULATES WITH A CANE ON THE RIGHT HAND, PATIENT HAS AN ANTALGIC GAIT AND HAS DIFFICULTIES AMBULATING. THERE IS TENDERNESS IN THE LUMBAR PARASPINAL MUSCLE GROUP WITH BANDS OF TISSUES, RESTRICTION OF MOVEMENT, AND PRESENCE OF TRIGGER POINTS. PATIENT'S LEFT LEG IS WEAKER AT FLEXION AND EXTENSION COMPARED TO THE RIGHT LEG. ASSESSMENTS CHRONIC BILATERAL LOW BACK PAIN WITH LEFT-SIDED SCIATICA - M54.42 (PRIMARY) POSTLAMINECTOMY SYNDROME, NOT ELSEWHERE CLASSIFIED - M96.1 MYALGIA - M79.1 INTERVERTEBRAL DISC DISORDERS WITH RADICULOPATHY, LUMBAR REGION - M51.16 INTERVERTEBRAL DISC DISORDERS WITH RADICULOPATHY, LUMBOSACRAL REGION - M51.17 TREATMENT CHRONIC BILATERAL LOW BACK PAIN WITH LEFT-SIDED SCIATICA REFILL MELOXICAM TABLET, 7.5 MG, 1 TAB WITH FOOD, ORALLY NEEDED, BID FOR PAIN, 30 DAY(S), 50, REFILLS 2 NOTES: WE DISCUSSED SEVERAL ISSUES WITH MS. MOHAN'S PAIN MANAGEMENT CASE. PATIENT DID NOT BRING HER MEDICATION BOTTLES TODAY AND WAS ADVISED TO DO SO FOR EVERY FOLLOW UP VISIT. PATIENT WILL RECEIVE A REFILL OF MELOXICAM, HYSINGLA, HYDROCODONE, CYCLOBENZAPRINE, AND ACETAMINOPHEN TODAY. PATIENT REPORTS THAT THESE MEDICATION ALLOW HER TO BE MOBILE AND INCREASE HER FUNCTIONALITY. AFTER EXAMINING THE PATIENT AND REVIEWING THE MRI THE PATIENT IS A GOOD CANDIDATE FOR A LEFT L4 AND A LEFT S1 TRANSFORAMINAL EPIDURAL INJECTION, WE DISCUSSED THE RISK, BENEFITS, AND ALTERNATIVES AND THE PATIENT WOULD LIKE TO PROCEED, PATIENT WILL BE BOOKED PENDING APPROVAL. UTOX DONE ON 02-23-2016 SHOWS CONSISTENT RESULTS WITH WHAT WAS PRESCRIBED. INSTRUCTIONS WERE GIVEN, QUESTIONS WERE ANSWERED, PATIENT REPORTS UNDERSTANDING AND AGREES WITH THE PLAN. I, JENNY JOHNSTON, DOCUMENTED THE ABOVE INFORMATION ACTING A SCRIBE FOR DR. BATRES. I HAVE REVIEWED THE ABOVE DOCUMENT, WRITTEN BY JENNY SOTO AND I VERIFY THAT IT IS ACCURATE. OTHERS REFILL HYSINGLA ER TABLET ER 24 HOUR ABUSE-DETERRENT, 20 MG, 1 TABLET, ORALLY (CODE D FOR CHRONIC PAIN ), BID MDD2, 90 DAYS, 180, REFILLS 0 REFILL HYDROCODONE-ACETAMINOPHEN TABLET, 10-325 MG, 1 TABLET NEEDED, ORALLY, EVERY 6 HRS PRN MDD4, 60 DAYS, 220, REFILLS 0 REFILL CYCLOBENZAPRINE HCL TABLET, 10 MG, 1 TABLET, ORALLY NEEDED, BID FOR SPASMS, 30 DAY(S), 60 TABLET, REFILLS 3 REFILL ACETAMINOPHEN CAPSULE, 500 MG, 1 CAPSULE NEEDED, ORALLY NEEDED, EVERY 6 HRS FOR PAIN MDD6, 30 DAY(S), 100, REFILLS 3 PROCEDURES PN WORKMANS' COMP OPINION IN YOUR OPINION, WAS THE INCIDENT THAT THE PATIENT DESCRIBED THE COMPETENT MEDICAL CAUSE OF THIS INJURY/ILLNESS? YES ARE THE PATIENT'S COMPLAINTS CONSISTENT WITH HIS/HER HISTORY OF THE INJURY/ILLNESS? YES IS THE PATIENT'S HISTORY OF THE INJURY/ILLNESS CONSISTENT WITH YOUR OBJECTIVE FINDING? YES WHAT IS THE PERCENTAGE OF TEMPORARY IMPAIRMENT? MODERATE TO MARKED = 66.7% IS THE PATIENT WORKING? NO DOCTOR ON SITE: SILVANA GOLDMAN MD PROCEDURE CODES G8730 PAIN ASSESS POS TOOL F/U PLAN DOC G8427 DOC MEDS VERIFIED W/PT OR RE DISPOSITION & COMMUNICATION FOLLOW UP [facility] PENDING APPROVAL ELECTRONICALLY SIGNED BY SILVANA BATRES MD ON 07/10/2016 AT 04:26 PM EDT DISCLAIMER : THIS IS A VISIT SUMMARY EXTRACTED FROM THE [employer] CHART. IT IS NOT A COPY OF THE [employer] PROGRESS NOTE. MTDD
== END ==
LOC: M PAIN 15:40
PROVIDERS: ATTEND Anesthesiology
DX: G89.29 Other chronic pain (principal); M96.1 Postlaminectomy syndrome, not elsewhere classified; M79.1 Myalgia; M51.17 Intervertebral disc disorders with radiculopathy, lumbosacral region; Z91.040 Latex allergy status; F32.9 Major depressive disorder, single episode, unspecified; Z88.0 Allergy status to penicillin; Z88.8 Allergy status to other drugs, medicaments and biological substances; Z79.1 Long term (current) use of non-steroidal anti-inflammatories (NSAID); Z79.899 Other long term (current) drug therapy

== ENCOUNTER → 2016-08-16 | Outpatient (CLI) | payer OTHER ==
--- NOTE | 2016-08-29 00:02 | ECWPNPC ---
PATIENT NAME: FARIDA MOHAN : 1960 GENDER: FEMALE VISIT DATE: 08/16/2016 DISCHARGE DATE: 08/16/16 1600 VISIT LOCKED DATE TIME: PHYSICIAN: SILVANA BATRES PHYSICIAN PAGER NO: [phone] RESOURCE: SILVANA BATRES REASON FOR APPOINTMENT 1. WC LOW BACK PAIN HISTORY OF PRESENT ILLNESS HISTORY OF PRESENT ILLNESS: PAIN THE PATIENT DESCRIBES THE PAIN... 56 YEAR OLD FEMALE PATIENT WITH HISTORY OF CHRONIC BACK PAIN. PATIENT DESCRIBES THE PAIN ACHING, SHARP, TENDER, AND SORE WITH A PAIN SCORE OF 7/10 ON TODAY'S VISIT. 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 PATIENT REPORTS THAT SHE HAS HAD ONE BACK SURGERY SINCE INJURING HER BACK. PATIENT HAS TRIED PHYSICAL THERAPY IN THE PAST WITHOUT ANY SUCCESS IN PAIN RELIEF. PATIENT REPORTS THAT SHE HAS RADIATING PAIN GOING DOWN HER LEFT LEG FROM HER BACK. PATIENT STATES THAT SOMETIME SHE HAS DIFFICULTIES SLEEPING AT NIGHT. PATIENT REPORTS THAT TAKING CYCLOBENZAPRINE NEEDED PREVENTS MUSCLE SPASMS. PATIENT DENIES UNEXPLAINABLE WEIGHT LOSS, FEVER, CHILLS, NEW CHANGES ON HER URINARY OR BOWEL CONTROL. FALL RISK SCREENING: SCREENING :NO FALLS IN THE PAST YEAR CURRENT MEDICATIONS TAKING MELOXICAM 7.5 MG TABLET 1 TAB WITH FOOD ORALLY NEEDED BID FOR PAIN TAKING HYSINGLA ER 20 MG TABLET ER 24 HOUR ABUSE-DETERRENT 1 TABLET ORALLY (CODE D FOR CHRONIC PAIN ) BID MDD2 TAKING CYCLOBENZAPRINE HCL 10 MG TABLET 1 TABLET ORALLY NEEDED BID FOR SPASMS TAKING ACETAMINOPHEN 500 MG CAPSULE 1 CAPSULE NEEDED ORALLY NEEDED EVERY 6 HRS FOR PAIN MDD6 TAKING MULTI COMPLETE CAPSULE 1 TAB ORALLY DAILY TAKING PRAVASTATIN SODIUM 40 MG TABLET 1 TABLET ORALLY ONCE A DAY TAKING CITALOPRAM HYDROBROMIDE 40 MG TABLET 1 TAB ORALLY ONCE A DAY TAKING IMITREX 6 MG/0.5ML SOLUTION 0.5 ML NEEDED SUBCUTANEOUS TWICE A DAY ONE HOR APART IF NEEDED DIR TAKING HYDROCODONE-ACETAMINOPHEN 10-325 MG TABLET 1 TABLET NEEDED ORALLY EVERY 6 HRS PRN MDD4 NOT-TAKING GABAPENTIN 100 MG CAPSULE DIRECTED ORALLY FOR PAIN BEFORE BEDTIME MEDICATION LIST REVIEWED AND RECONCILED WITH THE PATIENT PAST MEDICAL HISTORY DEPRESSION 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 SOCIAL HISTORY GENERAL: PAIN CLINIC PFS, CLERGY, PUBLIC HEALTH REFERRALS CLERGY REFERRAL NEEDED?NO WAS THE PROVIDER NOTIFIED OF ANY PERTINENT INFO?NO PFS REFERRAL NEEDED?NO PUBLIC HEALTH REFERRAL NEEDED?NO PATIENT: ____. HOSPITALIZATION/MAJOR DIAGNOSTIC PROCEDURE NO HOSPITALIZATION HISTORY. REVIEW OF SYSTEMS CONSTITUTIONAL: ANY CHANGE IN YOUR MEDICAL CONDITION? NO . CHILLS NO . FEVER NO . INFECTION: DO YOU HAVE NEW INFECTIONS? NO . DO YOU HAVE HISTORY OF MRSA? NO . MUSCULOSKELETAL: ANY NEW PATTERNS OF PAIN OR NUMBNESS? NO . GASTROENTEROLOGY: ANY NEW CHANGE IN BOWEL CONTROL? NO . GENITOURINARY: ANY NEW CHANGE IN BLADDER CONTROL? NO . IS THERE A CHANCE YOU COULD BE ? NO . HEMATOLOGY/LYMPH: DO YOU TAKE ANY BLOOD THINNERS? (FOR EXAMPLE- COUMADIN, PLAVIX, AGGRENOX, PLATEL, PRADAXA, OR XARELTO) NO . WHEN WAS YOUR LAST DOSE? DATE: TIME: . NEUROLOGY: HAVE YOU FALLEN IN THE PAST 6 MONTHS? NO . ANY NEW EXTREMITY NUMBNESS OR WEAKNESS? NO . CARDIOLOGY: DO YOU HAVE A PACEMAKER OR DEFIBRILLATOR? NO . RESPIRATORY: HAVE YOU BEEN SICK IN THE PAST WEEK? NO . FEVER NO . FLU LIKE SYMPTOMS? NO . COUGH NO . INTEGUMENTARY: DO YOU HAVE ANY RASHES OR OPEN SORES? NO . ALLERGIC/IMMUNO: ARE YOU ALLERGIC TO SHELLFISH OR IV DYE? NO . ANY NEW ALLERGIES? NO . PSYCHIATRIC: DO YOU HAVE THOUGHTS OF HURTING YOURSELF OR SOMEONE ELSE? NO . ARE YOU ABUSED, NEGLECTED, OR IN AN UNSAFE ENVIRONMENT? NO . ENDOCRINOLOGY: ARE YOU DIABETIC? NO . OTHER: DO YOU NEED ANY PRESCRIPTIONS? YES . IF YES, PLEASE LIST: HYDROCODONE ON JULY 28 . ANY NEW PROBLEMS WITH YOUR MEDICATIONS? NO . WHEN DID YOU LAST EAT? ____ . WHEN DID YOU LAST DRINK? ____ . WHAT DID YOU LAST DRINK? ____ . NAME OF PERSON DRIVING YOU HOME? ____ . DO YOU HAVE ANY OTHER QUESTIONS OR CONCERNS YES, WANTS HELP WITH C-4-3 FORM TO FILL OUT . REVIEWED BY: PROVIDER: SILVANA BATRES MD . VITAL SIGNS WT 177.4 LBS, HT 5'4 1/2", BMI 29.98 INDEX, BP 148/89 MM HG, HR 71 /MIN, RR 16 /MIN, TEMP 97.5 F, OXYGEN SAT % 96%, NA INITIALS TL 1356, REVIEWED BY: NL. EXAMINATION : PATIENT IS ALERT O X 3 AND COOPERATIVE. PATIENT AMBULATES WITH A CANE ON THE RIGHT HAND, PATIENT HAS AN ANTALGIC GAIT AND HAS DIFFICULTIES AMBULATING. THERE IS TENDERNESS IN THE LUMBAR PARASPINAL MUSCLE GROUP WITH BANDS OF TISSUES, RESTRICTION OF MOVEMENT, AND PRESENCE OF TRIGGER POINTS. PATIENT ABLE TO FLEX- DEGREES AND EXTEND 5 DEGREES. PATIENT'S LEFT LEG IS WEAKER AT FLEXION AND EXTENSION COMPARED TO THE RIGHT LEG. PATIENT TESTED POSITIVE FOR PAIN IN THE RIGHT AND LEFT FABERE TEST. DIFFICULTIES SITTING UP FROM SUPINE POSITION. MRI DONE ON 08/01/2014 SHOWS DEGENERATIVE DISC DISEASE WITH POST OPERATIVE CHANGES AT L4-L5 AND L5-S1 AND SPINAL STENOSIS AT L2-L3 AND L3-L4. ASSESSMENTS CHRONIC BILATERAL LOW BACK PAIN WITH LEFT-SIDED SCIATICA - M54.42 (PRIMARY) MYALGIA - M79.1 INTERVERTEBRAL DISC DISORDERS WITH RADICULOPATHY, LUMBAR REGION - M51.16 INTERVERTEBRAL DISC DISORDERS WITH RADICULOPATHY, LUMBOSACRAL REGION - M51.17 TREATMENT CHRONIC BILATERAL LOW BACK PAIN WITH LEFT-SIDED SCIATICA REFILL MELOXICAM TABLET, 7.5 MG, 1 TAB WITH FOOD, ORALLY NEEDED, BID FOR PAIN, 30 DAY(S), 50, REFILLS 2 NOTES: WE DISCUSSED SEVERAL ISSUES WITH MRS. MOHAN'S PAIN MANAGEMENT CASE. AT THIS TIME THE PATIENT WILL CONTINUE WITH THE SAME MEDICATION REGIME BEFORE. PATIENT IS USING THE MELOXICAM AND CYCLOBENZAPRINE FOR MUSCLE SPASTICITY, HYSINGLA AND HYDROCODONE FOR THE SOMATIC PAIN WELL THE TYLENOL. PATIENT STATES THE MEDICATIONS KEEP HER MOBILE AND FUNCTIONAL. PATIENT DENIES ABUSE OF ANY MEDICATION, DENIES USE OF ILLEGAL SUBSTANCES, AND STATES THAT SHE IS ONLY USING THE MEDICATION FOR PAIN MANAGEMENT. URINE TOXICOLOGY REPORT DONE ON 10/13/2015 SHOWS CONSISTENT RESULTS WITH THE PATIENT'S MEDICATION LIST. PATIENT BROUGHT MEDICATION TO TODAY'S VISIT IN THEIR ORIGINAL BOTTLES. PATIENT EXPRESSES THAT SHE NEEDS A C4.3 FILLED OUT FOR WORKER'S COMPENSATION, HOWEVER, I DO NOT DO ANY TYPE OF ASSESSMENT AND I RECOMMENDED SEEING AN ARIANA TO HAVE THE REQUEST FILLED. AFTER VIEWING WHERE THE PATIENT STATES HER PAIN IS AND VIEWING THE MRI I WOULD LIKE TO MOVE FORWARD WITH A TRANSFORAMINAL INJECTION. WE DISCUSSED THE RISKS, BENENFITS, AND ALTNERATIVES OF THE INJECTION AND THE PATIENT WOULD LIKE TO PROCEED AT THIS TIME. OTHERS REFILL HYSINGLA ER TABLET ER 24 HOUR ABUSE-DETERRENT, 20 MG, 1 TABLET, ORALLY (CODE D FOR CHRONIC PAIN ), BID MDD2, 90 DAYS, 180, REFILLS 0 REFILL CYCLOBENZAPRINE HCL TABLET, 10 MG, 1 TABLET, ORALLY NEEDED, BID FOR SPASMS, 30 DAY(S), 60 TABLET, REFILLS 3 REFILL HYDROCODONE-ACETAMINOPHEN TABLET, 10-325 MG, 1 TABLET NEEDED, ORALLY, EVERY 6 HRS PRN MDD4, 30 DAYS, 110, REFILLS 0 REFILL ACETAMINOPHEN CAPSULE, 500 MG, 1 CAPSULE NEEDED, ORALLY NEEDED, EVERY 6 HRS FOR PAIN MDD6, 30 DAY(S), 100, REFILLS 3 PROCEDURES PN WORKMANS' COMP OPINION IN YOUR OPINION, WAS THE INCIDENT THAT THE PATIENT DESCRIBED THE COMPETENT MEDICAL CAUSE OF THIS INJURY/ILLNESS? YES ARE THE PATIENT'S COMPLAINTS CONSISTENT WITH HIS/HER HISTORY OF THE INJURY/ILLNESS? YES IS THE PATIENT'S HISTORY OF THE INJURY/ILLNESS CONSISTENT WITH YOUR OBJECTIVE FINDING? YES WHAT IS THE PERCENTAGE OF TEMPORARY IMPAIRMENT? MODERATE TO MARKED = 66.7% IS THE PATIENT WORKING? NO DOCTOR ON SITE: SILVANA GOLDMAN MD PROCEDURE CODES FA211 ESTABILISHED PATIENT [facility] FACILITY CHARGE G8427 DOC MEDS VERIFIED W/PT OR RE G8730 PAIN ASSESS POS TOOL F/U PLAN DOC DISPOSITION & COMMUNICATION FOLLOW UP TRANSFORAMINAL AFTER APPROVAL ELECTRONICALLY SIGNED BY SILVANA BATRES MD ON 08/28/2016 AT 06:39 PM EDT DISCLAIMER : THIS IS A VISIT SUMMARY EXTRACTED FROM THE [employer] CHART. IT IS NOT A COPY OF THE [employer] PROGRESS NOTE. YULIANA
== END ==
LOC: M PAIN 14:10
PROVIDERS: ATTEND Anesthesiology
DX: G89.29 Other chronic pain (principal); M54.42 Lumbago with sciatica, left side; M79.1 Myalgia; F32.9 Major depressive disorder, single episode, unspecified; Z91.040 Latex allergy status; Z88.0 Allergy status to penicillin; Z88.8 Allergy status to other drugs, medicaments and biological substances; Z79.1 Long term (current) use of non-steroidal anti-inflammatories (NSAID); Z79.899 Other long term (current) drug therapy

== ENCOUNTER → 2016-10-12 | Outpatient (CLI) | payer OTHER ==
[~2016-10-12] MED LIST changes: +EXCE38TA PO; -EXCETAB PO; +MELO7.5T7 PO; -MORP15TA39 PO; +MORP1TAB19 PO; +MULT1TAB10 PO; +PERC5TAB12 PO; +VALI5TAB PO; +[UNRECOGNIZED DRUG - CODE] PO
--- NOTE | 2016-10-31 00:13 | ECWPNPC ---
PATIENT NAME: FARIDA MOHAN : 1960 GENDER: FEMALE VISIT DATE: 10/12/2016 DISCHARGE DATE: 10/12/16 1455 VISIT LOCKED DATE TIME: PHYSICIAN: SILVANA BATRES PHYSICIAN PAGER NO: [phone] RESOURCE: SILVANA BATRES REASON FOR APPOINTMENT 1. POST PROCEDURE HISTORY OF PRESENT ILLNESS HISTORY OF PRESENT ILLNESS: PAIN THE PATIENT DESCRIBES THE PAIN... 56 YEAR OLD FEMALE PATIENT WITH HISTORY OF CHRONIC BACK PAIN. PATIENT DESCRIBES THE PAIN ACHING, SHARP, TENDER, AND SORE WITH A PAIN SCORE OF 7/10 ON TODAY'S VISIT. 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 PATIENT REPORTS THAT SHE HAS HAD ONE BACK SURGERY SINCE INJURING HER BACK. PATIENT HAS TRIED PHYSICAL THERAPY IN THE PAST WITHOUT ANY SUCCESS IN PAIN RELIEF. PATIENT REPORTS THAT SHE HAS RADIATING PAIN GOING DOWN HER LEFT LEG FROM HER BACK. PATIENT STATES THAT SOMETIME SHE HAS DIFFICULTIES SLEEPING AT NIGHT. PATIENT REPORTS THAT TAKING CYCLOBENZAPRINE NEEDED PREVENTS MUSCLE SPASMS. PATIENT DENIES UNEXPLAINABLE WEIGHT LOSS, FEVER, CHILLS, NEW CHANGES ON HER URINARY OR BOWEL CONTROL. FALL RISK SCREENING: SCREENING :NO FALLS IN THE PAST YEAR CURRENT MEDICATIONS TAKING MELOXICAM 7.5 MG TABLET 1 TAB WITH FOOD ORALLY NEEDED BID FOR PAIN TAKING CYCLOBENZAPRINE HCL 10 MG TABLET 1 TABLET ORALLY NEEDED BID FOR SPASMS TAKING ACETAMINOPHEN 500 MG CAPSULE 1 CAPSULE NEEDED ORALLY NEEDED EVERY 6 HRS FOR PAIN MDD6 TAKING MULTI COMPLETE CAPSULE 1 TAB ORALLY DAILY TAKING PRAVASTATIN SODIUM 40 MG TABLET 1 TABLET ORALLY ONCE A DAY TAKING IMITREX 6 MG/0.5ML SOLUTION 0.5 ML NEEDED SUBCUTANEOUS TWICE A DAY ONE HOR APART IF NEEDED DIR TAKING HYDROCODONE-ACETAMINOPHEN 10-325 MG TABLET 1 TABLET NEEDED ORALLY EVERY 6 HRS PRN MDD4 TAKING CITALOPRAM HYDROBROMIDE 40 MG TABLET TAKE ONE TABLET BY MOUTH EVERY DAY TAKING PRAVASTATIN SODIUM 40 MG TABLET TAKE ONE TABLET BY MOUTH EVERY DAY TAKING HYSINGLA ER 20 MG TABLET ER 24 HOUR ABUSE-DETERRENT 1 TABLET ORALLY (CODE D FOR CHRONIC PAIN ) BID MDD2 NOT-TAKING GABAPENTIN 100 MG CAPSULE DIRECTED ORALLY FOR PAIN BEFORE BEDTIME MEDICATION LIST REVIEWED AND RECONCILED WITH THE PATIENT PAST MEDICAL HISTORY DEPRESSION 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 CONSTITUTIONAL: ANY CHANGE IN YOUR MEDICAL CONDITION? NO . CHILLS NO . FEVER NO . INFECTION: DO YOU HAVE NEW INFECTIONS? NO . DO YOU HAVE HISTORY OF MRSA? NO . MUSCULOSKELETAL: ANY NEW PATTERNS OF PAIN OR NUMBNESS? NO . GASTROENTEROLOGY: ANY NEW CHANGE IN BOWEL CONTROL? NO . GENITOURINARY: ANY NEW CHANGE IN BLADDER CONTROL? NO . IS THERE A CHANCE YOU COULD BE ? NO . HEMATOLOGY/LYMPH: DO YOU TAKE ANY BLOOD THINNERS? (FOR EXAMPLE- COUMADIN, PLAVIX, AGGRENOX, PLATEL, PRADAXA, OR XARELTO) NO . WHEN WAS YOUR LAST DOSE? DATE: TIME: . NEUROLOGY: HAVE YOU FALLEN IN THE PAST 6 MONTHS? NO . ANY NEW EXTREMITY NUMBNESS OR WEAKNESS? NO . CARDIOLOGY: DO YOU HAVE A PACEMAKER OR DEFIBRILLATOR? NO . RESPIRATORY: HAVE YOU BEEN SICK IN THE PAST WEEK? NO . FEVER NO . FLU LIKE SYMPTOMS? NO . COUGH NO . INTEGUMENTARY: DO YOU HAVE ANY RASHES OR OPEN SORES? NO . ALLERGIC/IMMUNO: ARE YOU ALLERGIC TO SHELLFISH OR IV DYE? NO . ANY NEW ALLERGIES? NO . PSYCHIATRIC: DO YOU HAVE THOUGHTS OF HURTING YOURSELF OR SOMEONE ELSE? NO . ARE YOU ABUSED, NEGLECTED, OR IN AN UNSAFE ENVIRONMENT? NO . ENDOCRINOLOGY: ARE YOU DIABETIC? NO . OTHER: DO YOU NEED ANY PRESCRIPTIONS? YES . IF YES, PLEASE LIST: HYDROCODONE . ANY NEW PROBLEMS WITH YOUR MEDICATIONS? NO . WHEN DID YOU LAST EAT? ____ . WHEN DID YOU LAST DRINK? ____ . WHAT DID YOU LAST DRINK? ____ . NAME OF PERSON DRIVING YOU HOME? ____ . DO YOU HAVE ANY OTHER QUESTIONS OR CONCERNS NO . VITAL SIGNS WT 176.8 LBS, HT 5'4 1/2", BMI 29.88 INDEX, BP 124/76 MM HG, HR 85 /MIN, RR 16 /MIN, TEMP 97.7 F, OXYGEN SAT % 95%, NA INITIALS SC 14:00. EXAMINATION : PATIENT IS ALERT O X 3 AND COOPERATIVE. PATIENT AMBULATES WITH A CANE ON THE RIGHT HAND, PATIENT HAS AN ANTALGIC GAIT AND HAS DIFFICULTIES AMBULATING. THERE IS TENDERNESS IN THE LUMBAR PARASPINAL MUSCLE GROUP WITH BANDS OF TISSUES, RESTRICTION OF MOVEMENT, AND PRESENCE OF TRIGGER POINTS. PATIENT ABLE TO FLEX- DEGREES AND EXTEND 5 DEGREES. PATIENT'S LEFT LEG IS WEAKER AT FLEXION AND EXTENSION COMPARED TO THE RIGHT LEG. PATIENT TESTED POSITIVE FOR PAIN IN THE RIGHT AND LEFT FABERE TEST. DIFFICULTIES SITTING UP FROM SUPINE POSITION. MRI DONE ON 08/01/2014 SHOWS DEGENERATIVE DISC DISEASE WITH POST OPERATIVE CHANGES AT L4-L5 AND L5-S1 AND SPINAL STENOSIS AT L2-L3 AND L3-L4. 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 MOHAN'S PAIN MANAGEMENT CASE. AT THIS TIME THE PATIENT WILL CONTINUE WITH THE SAME MEDICATION REGIME BEFORE. PATIENT IS USING THE MELOXICAM AND CYCLOBENZAPRINE FOR MUSCLE SPASTICITY, HYSINGLA AND HYDROCODONE FOR THE SOMATIC PAIN WELL THE TYLENOL. PATIENT STATES THE MEDICATIONS KEEP HER MOBILE AND FUNCTIONAL. PATIENT DENIES ABUSE OF ANY MEDICATION, DENIES USE OF ILLEGAL SUBSTANCES, AND STATES THAT SHE IS ONLY USING THE MEDICATION FOR PAIN MANAGEMENT. URINE TOXICOLOGY REPORT DONE ON 08/16/16 SHOWS CONSISTENT RESULTS WITH THE PATIENT'S MEDICATION LIST. PATIENT BROUGHT MEDICATION TO TODAY'S VISIT IN THEIR ORIGINAL BOTTLES. DUE TO THE RADICULAR PAIN I WOULD LIKE TO MOVE FORWARD WITH A TRANSFORAMINAL EPIDURAL INJECTION. WE DISCUSSED THE RISKS, BENEFITS, AND ALTNERATIVES OF THE INJECTION AND THE PATIENT WOULD LIKE TO PROCEED AT THIS TIME. INSTRUCTIONS WERE GIVEN, QUESTIONS WERE ANSWERED, PATIENT REPORTS UNDERSTANDING AND AGREES WITH THE PLAN. I, [place] CM, DOCUMENTED THE ABOVE INFORMATION ACTING A SCRIBE FOR DR. BATRES. I HAVE REVIEWED THE ABOVE DOCUMENT, WRITTEN BY [place] SOTO AND I VERIFY THAT IT IS ACCURATE. OTHERS REFILL CYCLOBENZAPRINE HCL TABLET, 10 MG, 1 TABLET, ORALLY NEEDED, BID FOR SPASMS, 30 DAY(S), 60 TABLET, REFILLS 3 REFILL ACETAMINOPHEN CAPSULE, 500 MG, 1 CAPSULE NEEDED, ORALLY NEEDED, EVERY 6 HRS FOR PAIN MDD6, 30 DAY(S), 100, REFILLS 3 REFILL HYDROCODONE-ACETAMINOPHEN TABLET, 10-325 MG, 1 TABLET NEEDED, ORALLY, EVERY 6 HRS PRN MDD4, 30 DAYS, 110, REFILLS 0 REFILL HYSINGLA ER TABLET ER 24 HOUR ABUSE-DETERRENT, 20 MG, 1 TABLET, ORALLY (CODE D FOR CHRONIC PAIN ), BID MDD2, 30 DAY(S), 60, REFILLS 0 REFILL GABAPENTIN CAPSULE, 100 MG, DIRECTED, ORALLY FOR PAIN, BEFORE BEDTIME, 30 DAY(S), 30, REFILLS 1 PROCEDURES PN WORKMANS' COMP OPINION IN YOUR OPINION, WAS THE INCIDENT THAT THE PATIENT DESCRIBED THE COMPETENT MEDICAL CAUSE OF THIS INJURY/ILLNESS? YES ARE THE PATIENT'S COMPLAINTS CONSISTENT WITH HIS/HER HISTORY OF THE INJURY/ILLNESS? YES IS THE PATIENT'S HISTORY OF THE INJURY/ILLNESS CONSISTENT WITH YOUR OBJECTIVE FINDING? YES WHAT IS THE PERCENTAGE OF TEMPORARY IMPAIRMENT? MODERATE TO MARKED = 66.7% IS THE PATIENT WORKING? NO DOCTOR ON SITE: SILVANA GOLDMAN MD PROCEDURE CODES FA211 ESTABILISHED PATIENT [facility] FACILITY CHARGE G8427 DOC MEDS VERIFIED W/PT OR RE G8730 PAIN ASSESS POS TOOL F/U PLAN DOC DISPOSITION & COMMUNICATION FOLLOW UP 2 MONTHS ELECTRONICALLY SIGNED BY SILVANA BATRES MD ON 10/30/2016 AT 07:33 AM EDT DISCLAIMER : THIS IS A VISIT SUMMARY EXTRACTED FROM THE [employer] CHART. IT IS NOT A COPY OF THE [employer] PROGRESS NOTE. YULIANA
== END ==
LOC: M PAIN 13:40
PROVIDERS: ATTEND Anesthesiology
DX: G89.29 Other chronic pain (principal); M51.16 Intervertebral disc disorders with radiculopathy, lumbar region; M51.17 Intervertebral disc disorders with radiculopathy, lumbosacral region; F32.9 Major depressive disorder, single episode, unspecified; F11.20 Opioid dependence, uncomplicated; Z91.040 Latex allergy status; Z88.0 Allergy status to penicillin; Z88.8 Allergy status to other drugs, medicaments and biological substances; Z79.899 Other long term (current) drug therapy

== ENCOUNTER → 2016-12-09 | Outpatient (CLI) | payer OTHER ==
--- NOTE | 2017-01-02 00:10 | ECWPNPC ---
PATIENT NAME: FARIDA MOHAN : 1960 GENDER: FEMALE VISIT DATE: 12/09/2016 DISCHARGE DATE: 12/09/16 0000 VISIT LOCKED DATE TIME: PHYSICIAN: FARIDA GALLOWAY PHYSICIAN PAGER NO: [phone] RESOURCE: FARIDA GALLOWAY REASON FOR APPOINTMENT 1. W/C BACK PAIN HISTORY OF PRESENT ILLNESS HISTORY OF PRESENT ILLNESS: CONTINUES WITH LBP AND L LEG PAIN AGGEVATED W INCREASED WALKING AND PROLONGED SITTING. FINDS CURRENT MEDICINE EFFECTIVE AT REDUCING PAIN AND KEEPING COMFORTABLE. USING HYSINGLA ER 20MG BID. USING 10/325 HYDROCODONE PERIODICALLY FOR SEVERE PAIN EPISODES USING 1-2 TAB PER DAY.ALSO USING FLEXERIL 10MG BID. RATING PAIN LEVEL 6/10 VAS.CURRENT MEDICATION FOR CHRONIC LBP IS BEING PRESCRIBED TO TREAT A WORK RELATED INJURY DATED 10-27-2012.REPORTS PERIODIC USE OF TENS UNIT WITH IMPROVEMENT IN PAIN. PAIN THE PATIENT DESCRIBES THE PAIN... THE PATIENT DESCRIBES THE PAIN... THE PATIENT DESCRIBES THE PAIN... THE PATIENT DESCRIBES THE PAIN... THE PATIENT DESCRIBES THE PAIN... PAIN THE PATIENT DESCRIBES THE PAIN... THE PATIENT DESCRIBES THE PAIN... THE PATIENT DESCRIBES THE PAIN... THE PATIENT DESCRIBES THE PAIN... THE PATIENT DESCRIBES THE PAIN... PAIN THE PATIENT DESCRIBES THE PAIN... THE PATIENT DESCRIBES THE PAIN... THE PATIENT DESCRIBES THE PAIN... THE PATIENT DESCRIBES THE PAIN... THE PATIENT DESCRIBES THE PAIN... FALL RISK SCREENING: SCREENING :NO FALLS IN THE PAST YEAR CURRENT MEDICATIONS TAKING MULTI COMPLETE CAPSULE 1 TAB ORALLY DAILY TAKING IMITREX 6 MG/0.5ML SOLUTION 0.5 ML NEEDED SUBCUTANEOUS TWICE A DAY ONE HOR APART IF NEEDED DIR TAKING CITALOPRAM HYDROBROMIDE 40 MG TABLET TAKE ONE TABLET BY MOUTH EVERY DAY TAKING PRAVASTATIN SODIUM 40 MG TABLET TAKE ONE TABLET BY MOUTH EVERY DAY TAKING MELOXICAM 7.5 MG TABLET 1 TAB WITH FOOD ORALLY NEEDED BID FOR PAIN TAKING CYCLOBENZAPRINE HCL 10 MG TABLET 1 TABLET ORALLY NEEDED BID FOR SPASMS TAKING ACETAMINOPHEN 500 MG CAPSULE 1 CAPSULE NEEDED ORALLY NEEDED EVERY 6 HRS FOR PAIN MDD6 TAKING HYDROCODONE-ACETAMINOPHEN 10-325 MG TABLET 1 TABLET NEEDED ORALLY EVERY 6 HRS PRN MDD4 TAKING HYSINGLA ER 20 MG TABLET ER 24 HOUR ABUSE-DETERRENT 1 TABLET ORALLY (CODE D FOR CHRONIC PAIN ) BID MDD2 NOT-TAKING PRAVASTATIN SODIUM 40 MG TABLET 1 TABLET ORALLY ONCE A DAY NOT-TAKING GABAPENTIN 100 MG CAPSULE DIRECTED ORALLY FOR PAIN BEFORE BEDTIME MEDICATION LIST REVIEWED AND RECONCILED WITH THE PATIENT PAST MEDICAL HISTORY DEPRESSION 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 CONSTITUTIONAL: ANY CHANGE IN YOUR MEDICAL CONDITION? NO . CHILLS NO . FEVER NO . INFECTION: DO YOU HAVE NEW INFECTIONS? NO . DO YOU HAVE HISTORY OF MRSA? NO . MUSCULOSKELETAL: ANY NEW PATTERNS OF PAIN OR NUMBNESS? YES . GASTROENTEROLOGY: ANY NEW CHANGE IN BOWEL CONTROL? NO . GENITOURINARY: ANY NEW CHANGE IN BLADDER CONTROL? NO . IS THERE A CHANCE YOU COULD BE ? NO . HEMATOLOGY/LYMPH: DO YOU TAKE ANY BLOOD THINNERS? (FOR EXAMPLE- COUMADIN, PLAVIX, AGGRENOX, PLATEL, PRADAXA, OR XARELTO) NO . WHEN WAS YOUR LAST DOSE? DATE: TIME: . NEUROLOGY: HAVE YOU FALLEN IN THE PAST 6 MONTHS? NO . ANY NEW EXTREMITY NUMBNESS OR WEAKNESS? NO . CARDIOLOGY: DO YOU HAVE A PACEMAKER OR DEFIBRILLATOR? NO . RESPIRATORY: HAVE YOU BEEN SICK IN THE PAST WEEK? NO . FEVER NO . FLU LIKE SYMPTOMS? NO . COUGH NO . INTEGUMENTARY: DO YOU HAVE ANY RASHES OR OPEN SORES? NO . ALLERGIC/IMMUNO: ARE YOU ALLERGIC TO SHELLFISH OR IV DYE? NO . ANY NEW ALLERGIES? NO . PSYCHIATRIC: DO YOU HAVE THOUGHTS OF HURTING YOURSELF OR SOMEONE ELSE? NO . ARE YOU ABUSED, NEGLECTED, OR IN AN UNSAFE ENVIRONMENT? NO . ENDOCRINOLOGY: ARE YOU DIABETIC? NO . OTHER: DO YOU NEED ANY PRESCRIPTIONS? NO . IF YES, PLEASE LIST: ____ . ANY NEW PROBLEMS WITH YOUR MEDICATIONS? NO . WHEN DID YOU LAST EAT? ____ . WHEN DID YOU LAST DRINK? ____ . WHAT DID YOU LAST DRINK? ____ . NAME OF PERSON DRIVING YOU HOME? ____ . DO YOU HAVE ANY OTHER QUESTIONS OR CONCERNS WHEN WALKING BACK AND LEG HURT MORE THAN USUAL . VITAL SIGNS WT 168 LBS, HT 5'4 1/2", BMI 28.39 INDEX, BP 160/89 MM HG, HR 80 /MIN, RR 16 /MIN, TEMP 97.4 F, OXYGEN SAT % 96%, NA INITIALS SC 14:28, REVIEWED BY: NL. EXAMINATION GENERAL EXAMINATION: LUNGS:LUNG SOUNDS ARE CLEAR. HEART:HEART RATE REGULAR. MUSCULOSKELETAL:*. MUSCULOSKELETAL:*. MUSCULOSKELETAL:*, MUSCLE STRENGTH TESTING 3/5 LEFT, 5/5 RIGHT BILATERAL. POSITIVE FOR PAIN OVER L/S SPINE. NEGATIVE FOR PAIN OVER L/S PARSPINALS. DIAGNOSTIC: . ASSESSMENTS CHRONIC BILATERAL LOW BACK PAIN WITH LEFT-SIDED SCIATICA - M54.42 (PRIMARY) CHRONIC PRESCRIPTION OPIATE USE - Z79.891 TREATMENT CHRONIC BILATERAL LOW BACK PAIN WITH LEFT-SIDED SCIATICA CONTINUE MELOXICAM TABLET, 7.5 MG, 1 TAB WITH FOOD, ORALLY NEEDED, BID FOR PAIN CONTINUE CYCLOBENZAPRINE HCL TABLET, 10 MG, 1 TABLET, ORALLY NEEDED, BID FOR SPASMS CONTINUE ACETAMINOPHEN CAPSULE, 500 MG, 1 CAPSULE NEEDED, ORALLY NEEDED, EVERY 6 HRS FOR PAIN MDD6 REFILL HYDROCODONE-ACETAMINOPHEN TABLET, 10-325 MG, 1 TABLET NEEDED, ORALLY, EVERY 6 HRS PRN MDD4, 30 DAYS, 110, REFILLS 0 REFILL HYSINGLA ER TABLET ER 24 HOUR ABUSE-DETERRENT, 20 MG, 1 TABLET, ORALLY (CODE D FOR CHRONIC PAIN ), BID MDD2, 30 DAY(S), 60, REFILLS 0 NOTES: ISTOP REGISTRY REVIEWED [id number] GERARDO COMPLLIANCE. BRINGS IN MEDICATIONS WHICH IS APPROPRIATE FOR WHAT WAS DISPENSED. RECENT URINE TOXICOLOGY REVIEWED. NO UNAUTHORIZED MEDICATIONS. NO ILLICIT SUBSTANCES AND PRESCRIBED MEDICATIONS WERE PRESENT. PROCEDURES PN WORKMANS' COMP OPINION IN YOUR OPINION, WAS THE INCIDENT THAT THE PATIENT DESCRIBED THE COMPETENT MEDICAL CAUSE OF THIS INJURY/ILLNESS? YES ARE THE PATIENT'S COMPLAINTS CONSISTENT WITH HIS/HER HISTORY OF THE INJURY/ILLNESS? YES IS THE PATIENT'S HISTORY OF THE INJURY/ILLNESS CONSISTENT WITH YOUR OBJECTIVE FINDING? YES WHAT IS THE PERCENTAGE OF TEMPORARY IMPAIRMENT? MODERATE TO MARKED = 66.7% IS THE PATIENT WORKING? NO DOCTOR ON SITE: SILVANA GOLDMAN MD PROCEDURE CODES FA211 ESTABILISHED PATIENT [facility] CHARGE DISPOSITION & COMMUNICATION FOLLOW UP 2 MONTHS ELECTRONICALLY SIGNED BY RAVI REED ON 01/01/2017 AT 08:02 PM EDT DISCLAIMER : THIS IS A VISIT SUMMARY EXTRACTED FROM THE [employer] CHART. IT IS NOT A COPY OF THE [employer] PROGRESS NOTE. YULIANA
== END ==
LOC: M PAIN 14:30
PROVIDERS: ATTEND Nurse Practitioner Family
DX: G89.29 Other chronic pain (principal); M54.42 Lumbago with sciatica, left side; E78.2 Mixed hyperlipidemia; F32.9 Major depressive disorder, single episode, unspecified; Z91.040 Latex allergy status; Z88.0 Allergy status to penicillin; Z88.8 Allergy status to other drugs, medicaments and biological substances; Z79.899 Other long term (current) drug therapy

== ENCOUNTER → 2017-03-22 | Outpatient (CLI) | payer OTHER | LOC: M PAIN 14:45 | DX: M54.42 Lumbago with sciatica, left side (principal); F32.9 Major depressive disorder, single episode, unspecified; Z88.0 Allergy status to penicillin; Z88.8 Allergy status to other drugs, medicaments and biological substances; Z91.040 Latex allergy status; Z79.891 Long term (current) use of opiate analgesic; Z79.899 Other long term (current) drug therapy | CPT/HCPCS: G0463 ==

== ENCOUNTER → 2017-05-15 | Outpatient (REF) | payer OTHER ==
[2017-05-15 15:54] LABS: INFLUENZA A AMPLIFICATION NEGATIVE (NEGATIVE); INFLUENZA B AMPLIFICATION NEGATIVE (NEGATIVE)
== END ==
LOC: M LAB REF 15:09
DX: J11.1 Influenza due to unidentified influenza virus with other respiratory manifestations (principal)

== ENCOUNTER → 2017-05-17 | Outpatient (CLI) | payer OTHER | LOC: M PAIN 14:00 | DX: M54.42 Lumbago with sciatica, left side (principal); F32.9 Major depressive disorder, single episode, unspecified; Z79.891 Long term (current) use of opiate analgesic; Z79.899 Other long term (current) drug therapy; Z91.040 Latex allergy status; Z88.0 Allergy status to penicillin; Z88.8 Allergy status to other drugs, medicaments and biological substances | CPT/HCPCS: G0463 ==

== ENCOUNTER → 2017-05-25 | Outpatient (CLI) | payer OTHER ==
[2017-05-25 16:03] LABS: TOTAL 25(OH) VITAMIN D 22.1 NG/ML (30.0-100.0)
[2017-05-25 16:04] LABS: IRON (FE) 132 UG/DL (50-170)
[2017-05-25 16:04] LABS: VITAMIN B12 LEVEL 533 PG/ML (247-911)
== END ==
LOC: M LAB 15:05
DX: F06.32 Mood disorder due to known physiological condition with major depressive-like episode (principal)
CPT/HCPCS: 83540

== ENCOUNTER → 2017-05-25 | Outpatient (CLI) | payer OTHER | LOC: M RAD 14:24 | DX: Z12.31 Encounter for screening mammogram for malignant neoplasm of breast (principal) | CPT/HCPCS: 77067 ==

== ENCOUNTER → 2017-07-31 | Outpatient (CLI) | payer OTHER | LOC: M PAIN 13:00 | DX: G89.29 Other chronic pain (principal); M54.42 Lumbago with sciatica, left side; F32.9 Major depressive disorder, single episode, unspecified; M96.1 Postlaminectomy syndrome, not elsewhere classified; Z79.891 Long term (current) use of opiate analgesic; Z79.899 Other long term (current) drug therapy; Z88.0 Allergy status to penicillin; Z88.8 Allergy status to other drugs, medicaments and biological substances; Z91.040 Latex allergy status | CPT/HCPCS: G0463 ==

== ENCOUNTER → 2017-09-22 | Outpatient (REF) | payer OTHER ==
[2017-09-22 12:40] LABS: ANION GAP 7 MEQ/L (8-16); BLOOD UREA NITROGEN 12 MG/DL (7-18); CALCIUM LEVEL 8.8 MG/DL (8.5-10.1); CARBON DIOXIDE LEVEL 28 MEQ/L (21-32); CHLORIDE LEVEL 108 MEQ/L (98-107); CREATININE FOR GFR 0.93 MG/DL (0.55-1.30); GLOMERULAR FILTRATION RATE > 60.0 (>51); GLUCOSE, FASTING 99 MG/DL (70-100); POTASSIUM SERUM 4.5 MEQ/L (3.5-5.1); SODIUM LEVEL 143 MEQ/L (136-145)
== END ==
LOC: M SFHCCLAY 09:37
DX: Z01.818 Encounter for other preprocedural examination (principal)

== ENCOUNTER → 2018-01-04 | Outpatient (CLI) | payer MEDICAID, MEDICARE, SELFPAY | LOC: M PAIN 09:00 | DX: M54.42 Lumbago with sciatica, left side (principal); M96.1 Postlaminectomy syndrome, not elsewhere classified; F32.9 Major depressive disorder, single episode, unspecified; Z79.891 Long term (current) use of opiate analgesic; Z79.899 Other long term (current) drug therapy; Z88.0 Allergy status to penicillin; Z88.8 Allergy status to other drugs, medicaments and biological substances; Z91.040 Latex allergy status; Z86.59 Personal history of other mental and behavioral disorders | CPT/HCPCS: G0463 ==

== ENCOUNTER → 2018-01-18 | Outpatient (CLI) | payer OTHER | LOC: M PAIN 08:30 | DX: M54.42 Lumbago with sciatica, left side (principal); F32.9 Major depressive disorder, single episode, unspecified; Z79.891 Long term (current) use of opiate analgesic; Z79.899 Other long term (current) drug therapy; Z88.0 Allergy status to penicillin; Z88.8 Allergy status to other drugs, medicaments and biological substances; Z91.040 Latex allergy status | CPT/HCPCS: G0463 ==

== ENCOUNTER → 2018-02-06 | Outpatient (CLI) | payer MEDICAID ==
[2018-02-06 10:51] LABS: HEMATOCRIT 38.3 % (36.0-47.0); HEMOGLOBIN 12.6 g/dl (12.0-15.5); MEAN CORPUSCULAR HEMOGLOBIN 30.4 pg (27.0-33.0); MEAN CORPUSCULAR HGB CONC 32.9 g/dl (32.0-36.5); MEAN CORPUSCULAR VOLUME 92.3 fl (80.0-96.0); PLATELET COUNT, AUTOMATED 212 10^3/uL (150-450); RED BLOOD COUNT 4.15 10^6/uL (4.00-5.40); RED CELL DISTRIBUTION WIDTH 12.3 % (11.5-14.5); WHITE BLOOD COUNT 3.1 10^3/uL (4.0-10.0)
[2018-02-06 11:20] LABS: ALBUMIN/GLOBULIN RATIO 1.43 (1.00-1.93); ALKALINE PHOSPHATASE 80 U/L (45-117); ALT/SGPT 35 U/L (12-78); ANION GAP 3 MEQ/L (8-16); AST/SGOT 17 U/L (7-37); BILIRUBIN,TOTAL 0.3 MG/DL (0.2-1.0); BLOOD UREA NITROGEN 13 MG/DL (7-18); CALCIUM LEVEL 9.2 MG/DL (8.5-10.1); CARBON DIOXIDE LEVEL 31 MEQ/L (21-32); CHLORIDE LEVEL 106 MEQ/L (98-107); CHOLESTEROL LEVEL 225 MG/DL (<200); CHOLESTEROL RISK RATIO 3.813 (<5); CREATININE FOR GFR 1.01 MG/DL (0.55-1.30); FREE T4 1.07 NG/DL (0.76-1.46); GLOMERULAR FILTRATION RATE 59.7 (>51); GLUCOSE, FASTING 100 MG/DL (70-100); HDL CHOLESTEROL 59 MG/DL (>40); LDL CHOLESTEROL 151 MG/DL (<100); NON-HDL-C 166 MG/DL; SODIUM LEVEL 140 MEQ/L (136-145); TOTAL PROTEIN 6.8 GM/DL (6.4-8.2); TRIGLYCERIDES LEVEL 74 MG/DL (<150)
== END ==
LOC: M LAB 10:11
DX: E78.49 Other hyperlipidemia (principal)
CPT/HCPCS: 84443

== ENCOUNTER → 2018-03-01 | Outpatient (CLI) | payer MEDICAID | LOC: M WHC 06:47 | DX: Z78.0 Asymptomatic menopausal state (principal) | CPT/HCPCS: 77080 ==

== ENCOUNTER → 2018-03-23 | Outpatient (CLI) | payer OTHER ==
--- NOTE | 2018-04-16 01:39 | ECWPNPC ---
PATIENT NAME: FARIDA MOHAN : 1960 GENDER: FEMALE VISIT DATE: 03/23/2018 DISCHARGE DATE: 03/23/18 0000 VISIT LOCKED DATE TIME: PHYSICIAN: FARIDA GALLOWAY RESOURCE: FARIDA GALLOWAY REASON FOR APPOINTMENT 1. W/C MED MANAGEMENT HISTORY OF PRESENT ILLNESS HISTORY OF PRESENT ILLNESS: PAIN THE PATIENT DESCRIBES THE PAIN... THE PATIENT DESCRIBES THE PAIN... HERE FOR F/U AND MANAGEMENT OF CHRONIC LOW BACK PAIN AND LEFT LEG PAIN.RATING PAIN VAS 7/10.DESCRIBES PAIN CONSTANT AND BURNING.THIS IS A WORK RELATED INJURY WITH DOI:8-10-13.FIND CURRENT MEDICATION EFFECTIVE AT REDUCING PAIN AND KEEPING HER COMFORTABLE.DENIES SIDE EFFECTS.CURRENTLY USING HYSINGLA 20MG BID,HYDROCODONE 10/325 MAX 4 PER DAYS,MOBIC 7.5MG BID AND CYCLOBENZAPRINE 10MG BID. FALL RISK SCREENING: SCREENING :NO FALLS IN THE PAST YEAR :NO FALLS IN THE PAST YEAR SCREENING :NO FALLS IN THE PAST YEAR :NO FALLS IN THE PAST YEAR DEPRESSION SCREENING: PHQ-2 IN LAST TWO WEEKS HAVE YOU BEEN BOTHERED BY LITTLE INTEREST OR PLEASURE IN DOING THINGSNO FEELING DOWN, DEPRESSED, OR HOPELESSNO CURRENT MEDICATIONS TAKING TRAZODONE HCL 50 MG TABLET 1 TABLET AT BEDTIME NEEDED ORALLY ONCE A DAY TAKING PRAVASTATIN SODIUM 40 MG TABLET 1 TABLET ORALLY ONCE A DAY TAKING WELLBUTRIN XL 300 MG TABLET EXTENDED RELEASE 24 HOUR 1 TABLET IN THE MORNING ORALLY ONCE A DAY TAKING WELLBUTRIN XL 150 MG TABLET EXTENDED RELEASE 24 HOUR 1 TABLET IN THE MORNING ORALLY ONCE A DAY TAKING SHINGRIX 50 MCG SUSPENSION RECONSTITUTED DIRECTED INTRAMUSCULAR DIRECTED, NOTES: HAS NOT OBTAINED YET TAKING ACETAMINOPHEN 500 MG CAPSULE 1 CAPSULE NEEDED ORALLY NEEDED EVERY 6 HRS FOR PAIN MDD6 TAKING COLACE 100 MG CAPSULE 2 ORALLY BID TAKING MELOXICAM 7.5 MG TABLET 1 TAB WITH FOOD ORALLY NEEDED BID FOR PAIN TAKING MULTI COMPLETE CAPSULE 1 TAB ORALLY DAILY TAKING CYCLOBENZAPRINE HCL 10 MG TABLET 1 TABLET ORALLY NEEDED BID FOR SPASMS TAKING HYDROCODONE-ACETAMINOPHEN 10-325 MG TABLET 1 TABLET NEEDED ORALLY EVERY 6 HRS PRN MDD4 TAKING HYSINGLA ER 20 MG TABLET ER 24 HOUR ABUSE-DETERRENT 1 TABLET ORALLY (CODE D FOR CHRONIC PAIN ) BID MDD2 MEDICATION LIST REVIEWED AND RECONCILED WITH THE PATIENT PAST MEDICAL HISTORY DEPRESSION 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 CHRONIC BILATERAL LOW BACK PAIN WITH LEFT-SIDED SCIATICA [facility] FOR CHRONIC PAIN HYPERLIPIDEMIA ASCVD RISK 2.8% ON 02/2018 VITAMIN D DEFICIENCY ALLERGIES LATEX (FOR ALLERGY USE ONLY): HIVES: ALLERGY PENICILLIN (FOR ALLERGIES USE ONLY): NAUSEA/VOMITING: SIDE EFFECTS PROCHLORPERAZINE: ANAPHYLAXIS: CONTRAINDICATION GABAPENTIN: CONFUSION: SIDE EFFECTS CYMBALTA: CONFUSION: ALLERGY SURGICAL HISTORY BACK SURGERY X3 1985,1988,2013 TOTAL ABDOMINAL HYSTERECTOMY 1995 APPENDECTOMY 1983 TONSILLECTOMY A CHILD RIGHT HAND SURGERY- DUPUYTREN'S CONTRACTURE 09/27/2017 COLONOSCOPY (DR. MALIK) WNL - REPEAT 5-10 YRS 04/22/2014 FAMILY HISTORY FATHER: , DIAGNOSED WITH OTHER MOTHER: , BREAST CANCER DX'D AGE 65, DIAGNOSED WITH CANCER SIBLINGS: COLON CANCER @ AGE 53, DIAGNOSED WITH HEART DISEASE, CANCER 2 BROTHER(S) , 4 SISTER(S) . 3 SON(S) , 1 DAUGHTER(S) - HEALTHY. 2 SIBLINGS - 1 SC, 1 BRAIN TUMOR4 SIBLINGS ALIVE - 1 DM, 1 WITH COLON CANCER. SOCIAL HISTORY GENERAL: TOBACCO USE ARE YOU A:NONSMOKER VAPORNO E-CIGARETTENO BMI CARE GOAL FOLLOW-UP ABOVE NORMAL BMI FOLLOW-UPEXERCISE PROMOTION: STRENGTH TRAINING ALCOHOL SCREENING DID YOU HAVE A DRINK CONTAINING ALCOHOL IN THE PAST YEAR?NO POINTS0 INTERPRETATIONNEGATIVE RECREATIONAL DRUG USE DRUG USE?NO CAFFEINE CAFFEINE USE?YES HOW OFTEN AND HOW MUCH? 1 CUP COFFEE IN AM SEXUAL HX HAD SEX IN THE LAST 12 MONTHS (VAGINAL, ORAL, OR ANAL)?NO HAVE YOU EVER HAD AN STD?NO HIV / HEP-C SCREENING HIV TEST OFFERED TO PATIENT:YES DATE OFFERED:01/10/2017 TEST ACCEPTED:NO REASON:PATIENT DECLINED HEP-C TEST OFFERED TO PATIENT:YES DATE OFFERED:01/10/2017 TEST ACCEPTED:NO REASON:PATIENT DECLINED ORTHODOX [id number] [employer]NABAPTISM LANGUAGE LANGUAGES SPOKEN:MONEGASQUE EDUCATION LEVEL OF EDUCATION:HIGH SCHOOL LEARNING BARRIERS / SPECIAL NEEDS CHANGE FROM LAST VISIT?NO 09/22/2017 BARRIERS TO LEARNING?NO HEARING IMPAIRED?NO VISION IMPAIRED?NO COGNITIVELY IMPAIRED?NO READINESS TO LEARN?YES LEARNING PREFERENCES?NO LEARNING CAPABILITIES PRESENT?YES EMOTIONAL BARRIERS?NO SPECIAL DEVICES?NO RAMP SUPERVISOR NEEDED?NO DOMESTIC VIOLENCE DO YOU FEEL SAFE IN YOUR ENVIRONMENT?YES OCCUPATION: UNEMPLOYED. PAIN CLINIC PFS, CLERGY, PUBLIC HEALTH REFERRALS PFS REFERRAL NEEDED?NO CLERGY REFERRAL NEEDED?NO PUBLIC HEALTH REFERRAL NEEDED?NO WAS THE PROVIDER NOTIFIED OF ANY PERTINENT INFO?NO HAS THE PATIENT BEEN EDUCATED REGARDING HIS/HER PLAN OF CARE?YES HAS THE PATIENT BEEN EDUCATED REGARDING PAIN, THE RISK FOR PAIN, THE IMPORTANCE OF EFFECTIVE PAIN MANAGEMENT, AND THE PAIN ASSESSMENT PROCESS?YES ADVANCE DIRECTIVE ADVANCE DIRECTIVE DISCUSSED WITH PATIENT:YES HCP INFORMATION GIVEN TODAY, 03/23/18. PATIENT DECLINED ASSISTANCE WITH FILLING OUT. REVIEWED WITH PATIENT 01/04/18 0920REVIEWED WITH PT 01/18/18 0847 BVREVIEWED WITH PATIENT 03/23/18 1328 JS. HOSPITALIZATION/MAJOR DIAGNOSTIC PROCEDURE FOR SURGERIES AND DELIVERIES ONLY REVIEW OF SYSTEMS REVIEWED BY: PROVIDER: FARIDA RODRIGUES . CONSTITUTIONAL: ANY CHANGE IN YOUR MEDICAL CONDITION? NO . CHILLS NO . FEVER NO . INFECTION: DO YOU HAVE NEW INFECTIONS? NO . DO YOU HAVE HISTORY OF MRSA? NO . MUSCULOSKELETAL: ANY NEW PATTERNS OF PAIN OR NUMBNESS? NO . GASTROENTEROLOGY: ANY NEW CHANGE IN BOWEL CONTROL? NO . GENITOURINARY: ANY NEW CHANGE IN BLADDER CONTROL? NO . IS THERE A CHANCE YOU COULD BE ? NO . HEMATOLOGY/LYMPH: DO YOU TAKE ANY BLOOD THINNERS? (FOR EXAMPLE- COUMADIN, PLAVIX, AGGRENOX, PLATEL, PRADAXA, OR XARELTO) NO . WHEN WAS YOUR LAST DOSE? DATE: TIME: . NEUROLOGY: HAVE YOU FALLEN IN THE PAST 6 MONTHS? NO . ANY NEW EXTREMITY NUMBNESS OR WEAKNESS? NO . CARDIOLOGY: DO YOU HAVE A PACEMAKER OR DEFIBRILLATOR? NO . RESPIRATORY: HAVE YOU BEEN SICK IN THE PAST WEEK? NO . FEVER NO . FLU LIKE SYMPTOMS? NO . COUGH NO . INTEGUMENTARY: DO YOU HAVE ANY RASHES OR OPEN SORES? NO . ALLERGIC/IMMUNO: ARE YOU ALLERGIC TO SHELLFISH OR IV DYE? NO . ANY NEW ALLERGIES? NO . PSYCHIATRIC: DO YOU HAVE THOUGHTS OF HURTING YOURSELF OR SOMEONE ELSE? NO . ARE YOU ABUSED, NEGLECTED, OR IN AN UNSAFE ENVIRONMENT? NO . ENDOCRINOLOGY: ARE YOU DIABETIC? NO . OTHER: DO YOU NEED ANY PRESCRIPTIONS? YES . IF YES, PLEASE LIST: ____MELOXICAM . ANY NEW PROBLEMS WITH YOUR MEDICATIONS? NO . WHEN DID YOU LAST EAT? ____ . WHEN DID YOU LAST DRINK? ____ . WHAT DID YOU LAST DRINK? ____ . NAME OF PERSON DRIVING YOU HOME? ____ . DO YOU HAVE ANY OTHER QUESTIONS OR CONCERNS NO . VITAL SIGNS WT 170.6 LBS, HT 5'4 1/2", BMI 28.83 INDEX, BP 104/67 MM HG, HR 81 /MIN, RR 16 /MIN, TEMP 98.0 F, OXYGEN SAT % 97%, SAFE IN ENV? (Y/N) YES, NA INITIALS NC 13:24, REVIEWED BY: AL. EXAMINATION GENERAL EXAMINATION: GENERAL APPEARANCE:ANTALGIC GAIT WITH ASSIST OF CANE. LUNGS:LUNG SOUNDS ARE CLEAR . HEART:HEART RATE REGULAR . MUSCULOSKELETAL:MUSCLE STRENGTH TESTING 5/5 RIGHT /2/5 LEFT , PALPATION: POSITIVE FOR PAIN OVER L/S SPINE. POSITIVE FOR PAIN OVER L/S PARSPINALS . DIAGNOSTIC: . ASSESSMENTS CHRONIC BILATERAL LOW BACK PAIN WITH LEFT-SIDED SCIATICA - M54.42 (PRIMARY) CHRONIC PRESCRIPTION OPIATE USE - Z79.899 TREATMENT CHRONIC BILATERAL LOW BACK PAIN WITH LEFT-SIDED SCIATICA CONTINUE COLACE CAPSULE, 100 MG, 2, ORALLY, BID CONTINUE MELOXICAM TABLET, 7.5 MG, 1 TAB WITH FOOD, ORALLY NEEDED, BID FOR PAIN CONTINUE CYCLOBENZAPRINE HCL TABLET, 10 MG, 1 TABLET, ORALLY NEEDED, BID FOR SPASMS REFILL HYDROCODONE-ACETAMINOPHEN TABLET, 10-325 MG, 1 TABLET NEEDED, ORALLY, EVERY 6 HRS PRN MDD4, 30 DAY(S), 110, REFILLS 0 REFILL HYSINGLA ER TABLET ER 24 HOUR ABUSE-DETERRENT, 20 MG, 1 TABLET, ORALLY (CODE D FOR CHRONIC PAIN ), BID MDD2, 30 DAY(S), 60, REFILLS 0 NOTES: [employer] REG[employer]RY REVIEWED AND DEMONSTRATES COMPLLIANCE. (REF # [id number] ) BRINGS IN MEDICATIONS WHICH IS APPROPRIATE FOR WHAT WAS DISPENSED. RECENT URINE TOXICOLOGY REVIEWED. NO UNAUTHORIZED MEDICATIONS. NO ILLICIT SUBSTANCES AND PRESCRIBED MEDICATIONS WERE PRESENT. , RISKS AND BENEFITS OF NARCOTIC/OPIOD MEDICATIONS WERE REVIEWED WITH PATIENT - THIS INCLUDES BUT IS NOT LIMITED TO RISK OF DEPENDANCE/DEVELOPMENT OF ADDICTION, MOOD DISTURBANCE AND DEPRESSION, OSTEOPOROSIS, HORMONAL AND LABIDAL CHANGES, RESPIRATORY DEPRESSION AND . PATIENT IS ADVISED NOT TO DRIVE OR DRINK ALCOHOL WHILE ON THESE MEDICATIONS. PROCEDURES PN WORKMANS' COMP OPINION IN YOUR OPINION, WAS THE INCIDENT THAT THE PATIENT DESCRIBED THE COMPETENT MEDICAL CAUSE OF THIS INJURY/ILLNESS? YES ARE THE PATIENT'S COMPLAINTS CONSISTENT WITH HIS/HER HISTORY OF THE INJURY/ILLNESS? YES IS THE PATIENT'S HISTORY OF THE INJURY/ILLNESS CONSISTENT WITH YOUR OBJECTIVE FINDING? YES WHAT IS THE PERCENTAGE OF TEMPORARY IMPAIRMENT? MODERATE TO MARKED = 66.7% IS THE PATIENT WORKING? NO DOCTOR ON SITE: SILVANA GOLDMAN MD PROCEDURE CODES FA211 ESTABILISHED PATIENT FORMERLY [facility] CHARGE DISPOSITION & COMMUNICATION FOLLOW UP PATIENT IS MOVING ELECTRONICALLY SIGNED BY RAVI VALENTINE ON 04/15/2018 AT 01:15 PM EST DISCLAIMER : THIS IS A VISIT SUMMARY EXTRACTED FROM THE [employer] CHART. IT IS NOT A COPY OF THE [employer] PROGRESS NOTE. YULIANA
== END ==
LOC: M PAIN 13:15
PROVIDERS: ATTEND Nurse Practitioner Family
DX: M54.42 Lumbago with sciatica, left side (principal); G89.29 Other chronic pain; F32.9 Major depressive disorder, single episode, unspecified; E78.5 Hyperlipidemia, unspecified; Z79.891 Long term (current) use of opiate analgesic; Z79.899 Other long term (current) drug therapy; Z88.0 Allergy status to penicillin; Z88.8 Allergy status to other drugs, medicaments and biological substances; Z91.040 Latex allergy status; Z86.59 Personal history of other mental and behavioral disorders

== ENCOUNTER → 2018-11-15 | Outpatient (CLI) | payer MEDICAID, SELFPAY ==
[~2018-11-15] MED LIST changes: -ACET50TA PO; +BACL10TA2; -CITA20TA4 PO; +CITA20TA6 PO; -DOCU10ELUD FT; +DOCU5LIQ FT; +HYDR-3719; +MAPA500T17 PO; +TRAM50TA2 PO; +ZOFR4TAB16 PO
[2018-11-15 14:19] LABS: ALBUMIN 3.5 GM/DL (3.2-5.2); ALT/SGPT 29 U/L (12-78); BILIRUBIN,TOTAL 0.3 MG/DL (0.2-1.0); BLOOD UREA NITROGEN 11 MG/DL (7-18); CARBON DIOXIDE LEVEL 32 MEQ/L (21-32); CHLORIDE LEVEL 106 MEQ/L (98-107); CREATININE FOR GFR 0.83 MG/DL (0.55-1.30); FREE T4 0.83 NG/DL (0.76-1.46); GLOMERULAR FILTRATION RATE > 60.0 (>45); GLUCOSE, FASTING 113 MG/DL (70-100); PTH INTACT 57.2 PG/ML (18.5-88.0); SODIUM LEVEL 140 MEQ/L (136-145); TOTAL 25(OH) VITAMIN D 45.4 NG/ML (30.0-100.0); TOTAL PROTEIN 6.4 GM/DL (6.4-8.2)
== END ==
LOC: M LAB 13:10
PROVIDERS: ATTEND Physician Assistant Medical
DX: E78.49 Other hyperlipidemia (principal); E55.9 Vitamin D deficiency, unspecified; F32.9 Major depressive disorder, single episode, unspecified; Z79.899 Other long term (current) drug therapy

== ENCOUNTER → 2018-11-21 | Outpatient (CLI) | payer SELFPAY ==
--- NOTE | 2018-11-21 11:18 | REP ---
BILATERAL MAMMOGRAM WITH 3D TOMOSYNTHESIS: Family history of breast cancer in mother at age 58. [facility] lifetime risk of breast cancer 11.0%. COMPARISON: 05/25/2017 as well as other prior exams. Moderate scattered fibroglandular tissue is again seen bilaterally. I suspect that there is a 7 mm nodule in the upper outer quadrant of the right breast, not definitely seen on prior studies. I see no other evidence of mass or architectural distortion. No clustered microcalcifications are seen. IMPRESSION: BIRADS 0: BI-RADS/ACR category 0 mammogram, Incomplete: Need additional imaging evaluation and/or prior mammograms for comparison. ACR 0 incomplete. Suspect 7 mm nodule upper outer quadrant of the right breast. Recommend spot compression views and ultrasound to further evaluate. This mammogram was interpreted with the aid of an FDA-approved computer-aided detection system. The patient states that she or he has not had a clinical breast exam in over a year. Patient letter being requested is M0. Electronically Signed by Jameel Sandoval MD 11/21/2018 03:33 P
== END ==
LOC: M RAD 10:12
PROVIDERS: ATTEND Physician Assistant Medical
DX: Z12.31 Encounter for screening mammogram for malignant neoplasm of breast (principal); R92.8 Other abnormal and inconclusive findings on diagnostic imaging of breast; Z80.3 Family history of malignant neoplasm of breast

== ENCOUNTER → 2018-11-29 | Outpatient (CLI) | payer SELFPAY ==
--- NOTE | 2018-11-29 10:11 | REP ---
DIAGNOSTIC MAMMOGRAM, RIGHT BREAST: Spot compression and repeat tomographic views of the right breast are performed to evaluate for possible 7 mm nodule in the upper outer quadrant of the right breast. The nodule does not persist on the multiple views obtained today. Therefore, the mammogram is negative. IMPRESSION: BIRADS 1: BI-RADS/ACR category 1 mammogram. Negative Mammogram. ACR 1 negative. No persistent nodule in the upper outer quadrant of the right breast. Recommend followup mammogram in 1 year. Patient letter being requested is M1. Electronically Signed by Jameel Sandoval MD 11/29/2018 11:41 A
== END ==
LOC: M RAD 09:15
PROVIDERS: ATTEND Physician Assistant Medical
DX: R92.8 Other abnormal and inconclusive findings on diagnostic imaging of breast (principal)

== ENCOUNTER 2018-12-06 17:58 | Emergency (ER) | payer MEDICARE, SELFPAY ==
[~2018-12-06] VITALS: Ht 167.6 cm; Wt 135.0 kg
[~2018-12-06 17:58] MED LIST changes: -BACL10TA2; -HYDR-3719; -TRAM50TA2 PO; -ZOFR4TAB16 PO
[2018-12-06] MEDS ORDERED: HYDR-3719 (18:06)
[2018-12-06] MEDS ORDERED: BACL10TA2 (18:07)
[2018-12-06] MEDS ORDERED: traMADol 50 MG TAB PO ONE (20:00)
[2018-12-06] MEDS ORDERED: ALPRAZolam 0.5 MG TAB PO ONE (20:00)
[2018-12-06 20:11] LABS: HEMATOCRIT 38.6 % (36.0-47.0); HEMOGLOBIN 12.9 g/dl (12.0-15.5); MEAN CORPUSCULAR HEMOGLOBIN 31.2 pg (27.0-33.0); MEAN CORPUSCULAR HGB CONC 33.4 g/dl (32.0-36.5); MEAN CORPUSCULAR VOLUME 93.5 fl (80.0-96.0); PLATELET COUNT, AUTOMATED 219 10^3/uL (150-450); RED BLOOD COUNT 4.13 10^6/uL (4.00-5.40); WHITE BLOOD COUNT 4.2 10^3/uL (4.0-10.0)
[2018-12-06 21:08] LABS: ERYTHROCYTE SEDIMENTATION RATE 9 mm/hr (0-30)
[2018-12-06] MEDS ORDERED: TRAM50TA2 PO (22:06)
[2018-12-06] MEDS ORDERED: ZOFR4TAB16 PO (22:06)
[2018-12-06 22:17] VITALS: BP 129/83
== END 2018-12-06 22:28 | disposition home or self-care (01) ==
LOC: M ED 17:58
DX: Z79.891 Long term (current) use of opiate analgesic (principal); M54.30 Sciatica, unspecified side; F41.9 Anxiety disorder, unspecified; F12.90 Cannabis use, unspecified, uncomplicated; E78.5 Hyperlipidemia, unspecified; Z79.899 Other long term (current) drug therapy; Z88.0 Allergy status to penicillin; Z88.8 Allergy status to other drugs, medicaments and biological substances; Z91.040 Latex allergy status

== ENCOUNTER → 2018-12-25 | Outpatient (CLI) | payer SELFPAY ==
[~2018-12-25] MED LIST changes: +BACL10TA2; +HYDR-3719; +TRAM50TA2 PO; +ZOFR4TAB16 PO
--- NOTE | 2019-01-08 00:59 | ECWPNPC ---
PATIENT NAME: FARIDA MOHAN : 1960 GENDER: FEMALE VISIT DATE: 12/25/2018 DISCHARGE DATE: 12/25/18 1117 VISIT LOCKED DATE TIME: PHYSICIAN: FARIDA GALLOWAY RESOURCE: FARIDA GALLOWAY REASON FOR APPOINTMENT 1. LOW BACK/SCIATICA HISTORY OF PRESENT ILLNESS HISTORY OF PRESENT ILLNESS: HERE FOR EVALUATION OF CHRONIC LOW BACK PAIN AND LEFT LEG RADICULOPATHY.RATING PAIN VAS 8-9/10.HAS WEANED OFF NARCOTIC PAIN MEDICATIONS OVER THE PAST 6 MONTHS AND DOES NOT LIKE THE WAY THEY MAKE HER FEEL.HAS TRIALED MULTIPLE MEDICATIONS TO INCLUDE GABAPENTIN AND LYRICA.HX OF 4 LUMBAR SURGERIES LAST ONE WAS DONE 2 YEARS AGO.HAVING DIFFICULTY WALKING AND USES A CANE.CURRENTLY USING TRAMADOL 2 TAB PER DAY AND CYCLOBENZAPRINE. PAIN THE PATIENT DESCRIBES THE PAIN... FALL RISK SCREENING: SCREENING :NO FALLS REPORTED IN THE LAST YEAR CURRENT MEDICATIONS TAKING PRAVASTATIN SODIUM 40 MG TABLET 1 TABLET ORALLY ONCE A DAY TAKING WELLBUTRIN XL 300 MG TABLET EXTENDED RELEASE 24 HOUR 1 TABLET IN THE MORNING ORALLY ONCE A DAY TAKING TRAZODONE HCL 100 MG TABLET 1 TABLET AT BEDTIME NEEDED ORALLY ONCE A DAY TAKING SHINGRIX 50 MCG SUSPENSION RECONSTITUTED DIRECTED INTRAMUSCULAR DIRECTED, NOTES: GOT FIRST DOSE 04/07 TAKING COLACE 100 MG CAPSULE 2 ORALLY BID TAKING IMITREX 6 MG/0.5ML SOLUTION 0.5 ML NEEDED SUBCUTANEOUS ONCE A DAY; MAY REPEAT DOSE X1 AFTER 2 HRS IF STILL SYMPTOMATIC TAKING CALCIUM 500-100 MG-UNIT TABLET CHEWABLE 1 TABLET WITH A MEAL ORALLY ONCE A DAY TAKING MULTI COMPLETE CAPSULE 1 TAB ORALLY DAILY TAKING VITAMIN D3 1000 UNIT CAPSULE 1 CAPSULE ORALLY ONCE A DAY TAKING ACETAMINOPHEN 500 MG CAPSULE 2 CAPSULE ORALLY NEEDED BID TAKING CYCLOBENZAPRINE HCL 10 MG TABLET 1 TABLET ORALLY NEEDED BID FOR SPASMS TAKING BACLOFEN 10 MG TABLET 1 TABLET WITH FOOD OR MILK ORALLY EVERY 8 HRS TAKING MELOXICAM 7.5 MG TABLET 1 TAB WITH FOOD ORALLY NEEDED BID FOR PAIN TAKING TRAMADOL HCL 50 MG TABLET 1 TABLET NEEDED ORALLY TWICE DAILY NEEDED NOT-TAKING HYDROCODONE-ACETAMINOPHEN 10-325 MG TABLET 1 TABLET NEEDED ORALLY EVERY 6 HRS PRN MDD4 NOT-TAKING TRAMADOL HCL ER 100 MG TABLET EXTENDED RELEASE 24 HOUR 1 TABLET ORALLY ONCE A DAY MEDICATION LIST REVIEWED AND RECONCILED WITH THE PATIENT PAST MEDICAL HISTORY DEPRESSION 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 CHRONIC BILATERAL LOW BACK PAIN WITH LEFT-SIDED SCIATICA [facility] FOR CHRONIC PAIN HYPERLIPIDEMIA ASCVD RISK 2.8% ON 02/2018 VITAMIN D DEFICIENCY DEXA 03/01/18 HIP FX RISK 0.6%, OTHER MAJOR FX 7.5% - TX INDICATED ALLERGIES LATEX (FOR ALLERGY USE ONLY): HIVES - ALLERGY PENICILLIN (FOR ALLERGIES USE ONLY): NAUSEA/VOMITING - SIDE EFFECTS PROCHLORPERAZINE: ANAPHYLAXIS - CONTRAINDICATION GABAPENTIN: CONFUSION - SIDE EFFECTS CYMBALTA: CONFUSION - ALLERGY SURGICAL HISTORY BACK SURGERY X3 1985,1988,2013 TOTAL ABDOMINAL HYSTERECTOMY 1995 APPENDECTOMY 1983 TONSILLECTOMY A CHILD RIGHT HAND SURGERY- DUPUYTREN'S CONTRACTURE 09/27/2017 COLONOSCOPY (DR. MALIK) WNL - REPEAT 5-10 YRS 04/22/2014 FAMILY HISTORY FATHER: 58 YRS, DIAGNOSED WITH OTHER SPECIFIED CONDITIONS INFLUENCING HEALTH STATUS MOTHER: 67 YRS, BREAST CANCER DX'D AGE 65, OTHER MALIGNANT NEOPLASM OF UNSPECIFIED SITE SIBLINGS: COLON CANCER @ AGE 53, UNSPECIFIED HEART DISEASE, OTHER MALIGNANT NEOPLASM OF UNSPECIFIED SITE 2 BROTHER(S) , 4 SISTER(S) . 3 SON(S) , 1 DAUGHTER(S) - HEALTHY. 2 SIBLINGS - 1 IA, 1 BRAIN TUMOR4 SIBLINGS ALIVE - 1 DM, 1 WITH COLON CANCER DAD OF CIRRHOSIS IN LATE 50'SMOM AGE 67 OF MET. BREAST CABROTHER C COLON CA RESECTED, BRO. 2 C HTN & ARRHYTHMIA; 2 FROM T2DM, COMPLICATIONS,2ND C SEPSIS2 A&W 62, 65. SOCIAL HISTORY GENERAL: TOBACCO USE ARE YOU A:NONSMOKER VAPORNO E-CIGARETTENO HIV / HEP-C SCREENING HIV TEST OFFERED TO PATIENT:YES DATE OFFERED:01/10/2017 TEST ACCEPTED:NO HEP-C TEST OFFERED TO PATIENT:YES DATE OFFERED:01/10/2017 REASON:PATIENT DECLINED TEST ACCEPTED:NO REASON:PATIENT DECLINED OTHERS AT HOME: HER 4 CHILDREN, NO PETS. EDUCATION LEVEL OF EDUCATION:HIGH SCHOOL DIET: REGULAR. LANGUAGE LANGUAGES SPOKEN:UZBEK DOMESTIC VIOLENCE DO YOU FEEL SAFE IN YOUR ENVIRONMENT?YES BMI CARE GOAL FOLLOW-UP ABOVE NORMAL BMI FOLLOW-UPEXERCISE PROMOTION: STRENGTH TRAINING RECREATIONAL DRUG USE DRUG USE?YES HOW OFTEN AND HOW MUCH? ONCE WAS MARIJUANA FOR PAIN DIDN'T HELP EXERCISE: WALKS. LEARNING BARRIERS / SPECIAL NEEDS CHANGE FROM LAST VISIT?NO 09/22/2017 BARRIERS TO LEARNING?NO HEARING IMPAIRED?NO VISION IMPAIRED?NO COGNITIVELY IMPAIRED?NO READINESS TO LEARN?YES LEARNING PREFERENCES?NO LEARNING CAPABILITIES PRESENT?YES EMOTIONAL BARRIERS?NO SPECIAL DEVICES?NO LAWYER REAL ESTATE NEEDED?NO PAIN CLINIC PFS, CLERGY, PUBLIC HEALTH REFERRALS PFS REFERRAL NEEDED?NO CLERGY REFERRAL NEEDED?NO PUBLIC HEALTH REFERRAL NEEDED?NO WAS THE PROVIDER NOTIFIED OF ANY PERTINENT INFO?NO HAS THE PATIENT BEEN EDUCATED REGARDING HIS/HER PLAN OF CARE?YES HAS THE PATIENT BEEN EDUCATED REGARDING PAIN, THE RISK FOR PAIN, THE IMPORTANCE OF EFFECTIVE PAIN MANAGEMENT, AND THE PAIN ASSESSMENT PROCESS?YES LATEX QUESTIONNAIRE LATEX ALLERGY : HAVE YOU EVER DEVELOPED ANY TYPE OF REACTION AFTER HANDLING LATEX PRODUCTS SUCH RUBBER GLOVES, CONDOMS, DIAPHRAGMS, BALLOONS, SOCKS, OR UNDERWEAR?YES LATEX ALLERGY : HAVE YOU EVER DEVELOPED ANY TYPE OF REACTION DURING OR AFTER DENTAL APPOINTMENT, VAGINAL/RECTAL EXAMINATION, SURGICAL PROCEDURE, OR ANY OTHER EXPOSURE?NO - PLEASE INDICATE :OTHER (DOCUMENT IN NOTES) ALL KINDS OF IT DATE ASKED : 12/03/2018 LATEX RISK : HAVE YOU EVER HAD ANY DIFFICULTY BREATHING OR HIVES AFTER EATING OR HANDLING ANY FRUITS, OR VEGETABLES; SUCH KIWI, BANANAS, STONE FRUITS, OR CHESTNUTSNO LATEX RISK : DO YOU HAVE A PREVIOUS PERSONAL HISTORY OF MORE THAN NINE SURGERIES, SPINA BIFIDA, OR REPEATED CATHERIZATIONS? NO LATEX RISK : ARE YOU FREQUENTLY EXPOSED TO LATEX PRODUCTS IN YOUR OCCUPATION?NO CAFFEINE CAFFEINE USE?YES HOW OFTEN AND HOW MUCH? 1 CUP COFFEE IN AM ADVANCE DIRECTIVE ADVANCE DIRECTIVE DISCUSSED WITH PATIENT:YES HCP IS DAUGHTER MIGUEL MORMON [id number] TAOIST MARITAL STATUS: STAYS C HER DAUGHTER, . ALCOHOL SCREENING DID YOU HAVE A DRINK CONTAINING ALCOHOL IN THE PAST YEAR?NO POINTS0 INTERPRETATIONNEGATIVE OCCUPATION: UNEMPLOYED. SEXUAL HX HAD SEX IN THE LAST 12 MONTHS (VAGINAL, ORAL, OR ANAL)?NO HAVE YOU EVER HAD AN STD?NO REVIEWED WITH PATIENT 01/04/18 0920REVIEWED WITH PT 01/18/18 0847 BVREVIEWED WITH PATIENT 03/23/18 1328 JSREVIEWED WITH PATIENT 12/25/2018 LAS. HOSPITALIZATION/MAJOR DIAGNOSTIC PROCEDURE FOR SURGERIES AND DELIVERIES ONLY REVIEW OF SYSTEMS REVIEWED BY: PROVIDER: FARIDA RODRIGUES . CONSTITUTIONAL: ANY CHANGE IN YOUR MEDICAL CONDITION? NO . CHILLS NO . FEVER NO . INFECTION: DO YOU HAVE NEW INFECTIONS? NO . DO YOU HAVE HISTORY OF MRSA? NO . MUSCULOSKELETAL: ANY NEW PATTERNS OF PAIN OR NUMBNESS? YES PT REPORTS SHE WAS TAKING HYSINGLA AND HYDROCODONE, WAS BECOMING CONFUSED, SO SHE STOPPED TAKING THEM. HER PAIN IS NOW INCREASED, SHE WENT TO THE ED AND HER PRIMARY AND IS NOW TAKING TRAMADOL, WHICH IS NOT EFFECTIVE IN TREATING HER PAIN. . GASTROENTEROLOGY: ANY NEW CHANGE IN BOWEL CONTROL? NO . GENITOURINARY: ANY NEW CHANGE IN BLADDER CONTROL? NO . IS THERE A CHANCE YOU COULD BE ? NO . HEMATOLOGY/LYMPH: DO YOU TAKE ANY BLOOD THINNERS? (FOR EXAMPLE- COUMADIN, PLAVIX, AGGRENOX, PLATEL, PRADAXA, OR XARELTO) NO . WHEN WAS YOUR LAST DOSE? DATE: TIME: . NEUROLOGY: HAVE YOU FALLEN IN THE PAST 12 MONTHS? NO . ANY NEW EXTREMITY NUMBNESS OR WEAKNESS? NO . CARDIOLOGY: DO YOU HAVE A PACEMAKER OR DEFIBRILLATOR? NO . RESPIRATORY: HAVE YOU BEEN SICK IN THE PAST WEEK? NO . FEVER NO . FLU LIKE SYMPTOMS? NO . COUGH NO . INTEGUMENTARY: DO YOU HAVE ANY RASHES OR OPEN SORES? NO . ALLERGIC/IMMUNO: ARE YOU ALLERGIC TO IV DYE? NO . ANY NEW ALLERGIES? NO . PSYCHIATRIC: DO YOU HAVE THOUGHTS OF HURTING YOURSELF OR SOMEONE ELSE? NO . ARE YOU ABUSED, NEGLECTED, OR IN AN UNSAFE ENVIRONMENT? NO . ENDOCRINOLOGY: ARE YOU DIABETIC? NO . OTHER: DO YOU NEED ANY PRESCRIPTIONS? NO . IF YES, PLEASE LIST: ____ . ANY NEW PROBLEMS WITH YOUR MEDICATIONS? NO . WHEN DID YOU LAST EAT? ____ . WHEN DID YOU LAST DRINK? ____ . WHAT DID YOU LAST DRINK? ____ . NAME OF PERSON DRIVING YOU HOME? ____ . DO YOU HAVE ANY OTHER QUESTIONS OR CONCERNS YES PT WOULD LIKE TO DISCUSS PAIN MEDICATIONS . VITAL SIGNS WT 144 LBS, HT 64.5 IN, BMI 24.33 INDEX, BP 130/82 MM HG, HR 82 /MIN, RR 18 /MIN, TEMP 98.6 F, OXYGEN SAT % 99%, SAFE IN ENV? (Y/N) YES, NA INITIALS AW 1036, REVIEWED BY: CONNOR. EXAMINATION GENERAL EXAMINATION: GENERALANTALGIC GAIT WITH ASSIST OF CANE. LUNGS:LUNG SOUNDS ARE CLEAR . HEART:HEART RATE REGULAR . MUSCULOSKELETAL:MUSCLE STRENGTH TESTING 5/5 RIGHT /2/5 LEFT , PALPATION: POSITIVE FOR PAIN OVER L/S SPINE. POSITIVE FOR PAIN OVER L/S PARSPINALS . DIAGNOSTIC: . ASSESSMENTS CHRONIC BILATERAL LOW BACK PAIN WITH LEFT-SIDED SCIATICA - M54.42 (PRIMARY) TREATMENT CHRONIC BILATERAL LOW BACK PAIN WITH LEFT-SIDED SCIATICA INCREASE TRAMADOL HCL TABLET, 50 MG, 1 TO 2 TAB, ORALLY, Q6H PRN MDD4, 30 DAYS, 120, REFILLS 1 NOTES: DISCUSSED TREATMENT OPTIONS TO INCLUDE INJECTION TRIALS,MEDICATION TRIALS AND CBD PRODUCT TRIALS.SHE IS NOT INTERESTED IN INJECTIONS.WOULD BE A GOOD CANDIDATE FOR PALLIATIVE CARE REFFERAL BUT THEY ARE CURRENTLY NOT ACCEPTING NEW PATIENTS AT THIS TIME.RECOMMEND INCREASING TRAMADOL TO MAX 4 PER DAY.RECOMMEND CBD OIL TRIAL., [facility] NARCOTIC AGREEMENT WAS REVIEWED AND SIGNED TODAY BY THE PATIENT. SEE ATTACHED DOCUMENT FOR FULL DETAILS; SPECIFIC ISSUES WERE REVIEWED: 1) KEEP PAIN MEDS IN THEIR ORIGINAL BOTTLES AND ANY WEEKLY PLANNERS ARE TO BE BROUGHT TO THE PAIN CENTER AT EVERY VISIT. 2) THE PATIENT IS NOT TO INCREASE DOSING OR TIMING OF THEIR PAIN MEDICATION WITHOUT SPECIFIC DIRECTION OF THEIR PAIN CENTERPROVIDER (NOT ER OR OTHER PROVIDERS). 3) ALL PAIN MEDS ARE TO BE KEPT SECURED, IN A LOCKED BOX. 4) NO PAIN MEDS ARE TO BE SHARED WITH ANY OTHER PERSON FOR ANY REASON. 5) NO PAIN MEDS MAY BE TAKEN FROM ANY FRIENDS OR RELATIVES FOR ANY REASON 6) NO MEDS OR SUBSTANCES WHICH ARE NOT LEGAL ARE TO BE USED- NO MARIJUANA, NO COCAINE, AMPHETAMINES, HEROIN, OR OTHERS ARE EVER TO BE USED. 7)URINE TESTING IS DONE TO ACCOUNT FOR MEDS AND SUBSTANCES BEING TAKEN AND WILL BE DONE RANDOMLY., RISKS OF NARCOTIC/OPIOD MEDICATIONS INCLUDES BUT IS NOT LIMITED TO RISK OF DEPENDANCE/DEVELOPMENT OF ADDICTION, MOOD DISTURBANCE AND DEPRESSION, OSTEOPOROSIS, HORMONAL AND LABIDAL CHANGES, RESPIRATORY DEPRESSION AND . PATIENT IS ADVISED NOT TO DRIVE OR DRINK ALCOHOL WHILE ON THESE MEDICATIONS. PROCEDURE CODES FA211 ESTABILISHED PATIENT [facility] CHARGE DISPOSITION & COMMUNICATION FOLLOW UP 2 MONTHS ELECTRONICALLY SIGNED BY RAVI VALENTINE ON 01/07/2019 AT 10:45 AM EDT DISCLAIMER : THIS IS A VISIT SUMMARY EXTRACTED FROM THE [facility] CHART. IT IS NOT A COPY OF THE [facility] PROGRESS NOTE. MTDD
== END ==
LOC: M PAIN 10:00
PROVIDERS: ATTEND Nurse Practitioner Family
DX: M54.42 Lumbago with sciatica, left side (principal); G89.29 Other chronic pain; Z86.59 Personal history of other mental and behavioral disorders; E78.5 Hyperlipidemia, unspecified; E55.9 Vitamin D deficiency, unspecified; Z88.0 Allergy status to penicillin; Z88.8 Allergy status to other drugs, medicaments and biological substances; Z91.040 Latex allergy status; Z79.899 Other long term (current) drug therapy